=== PATIENT | male | born 1960 | race Caucasian/White ===

== ENCOUNTER → 2017-03-24 | Outpatient (CLI) | payer BC, OTHER ==
[~2017-03-24] VITALS: Ht 175.3 cm; Wt 182.3 kg
[~2017-03-24] MED LIST: ASPI81TA28 PO; CAND1TAB19 PO; HYDR25TA5 PO; PRVC/40 PO; TPRSR/100 PO
[2017-03-24 15:05] VITALS: BP 140/82; PULSE 83; Ht 175.3 cm; Wt 182.3 kg
== END | disposition home or self-care (01) ==
LOC: C.NEUR 14:40
PROVIDERS: ATTEND Internal Medicine Pulmonary Disease
DX: G47.33 Obstructive sleep apnea (adult) (pediatric) (principal); R05 Cough; E66.01 Morbid (severe) obesity due to excess calories

== ENCOUNTER → 2017-04-29 | Outpatient (CLI) | payer BC, OTHER ==
--- NOTE | 2017-04-30 06:22 | PAP/PSG TECHNICIAN REPORT ---
[facility] Appraiser Personal Property Polysomnogram Report Study name: None Report date: 04/30/2017 Study date: 04/29/2017 Referring Physician: DR. ROSAS Name: BRANDI MURPHY Interpreting Physician: Todd Rosas M.D. Date of : 1960 Appraiser Personal Property: SAMUEL Silva. Sex: Male Age: 56 StudyType: PSG PAP Weight: 401 lbs 22.5 inches Height: 56 years, Height 5' 9" Neck Circum: BMI: 59.21 Medications: ASPIRIN 81 MG, FUROSEMIDE 40 MG, HYDRALAZINE HCL 25 MG, LISINOPRIL 20 MG, METOPROLOL TARTRATE 50 MG, NAPROXEN 500 MG, PRAVASTATIN SODIUM 40 MG Patient History PATIENT HAS HISTORY OF SNORING, DAYTIME SLEEPINESS AND MARIUSZ. HE CURRENTLY HAS BEEN WEARING CPAP BUT STILL FEELS QUITE TIRED DURING THE DAY. HE HAS GAINED A SIGNIFICANT AMOUNT OF WEIGHT SINCE HIS LAST STUDY. HE IS HERE TODAY FOR A BIPAP TITRATION. ESS = 3 RM 7 Parameters Monitored NPSG: E1-M2, E2-M1, Fp1-M2, Fp2-M1, F3-M2, F4-M2, F4-M1, C3-M2, C4-M2, C4-M1, O1-M2, O2-M2, O2-M1, T3-M2, T4-M1, P3-M2, P4-M1, CHIN1, CHIN2, HR, EKG, Legs, PFLOW, SNOR, FLOW, CFLOW, Tidal Volume, THOR, ABDO, SpO2, PLTH, CPRESS, ETCO2 Wave, ETCO2, pH Sleep Architecture Sleep Stages Time at Lights Off 8:43:58 PM STAGES Time (min.) TST (%) Time at Lights On 5:46:28 AM Wake 52.5 -- Total Recording Time (TRT) 543.00 min. N1 23.0 5 Total Sleep Period (TSP) 539.5 min. N2 234.0 48 Total Sleep Time (TST) 490.0min. N3 105.0 21 Awake Time 53.0 min. REM 128.0 26 Wake after Sleep Onset 50.5 min. Sleep Efficiency (SE) 90 % Sleep Onset Latency (REZA) 2.0 min. Number of Stage 1 Shifts None Awakenings 13 Stage Changes 67 Number of REM periods 6 REM 128.0 26 REM Latency 137.5 min. NREM 362.0 74 Body Position Analysis Supine Right Left Side Prone Vertical Total Sleep Time (min.) 308.4 208.0 0.0 208.04 0.0 0.0 Total Sleep Time (%) 58% 42% 0% 42 0% N/A% Total Sleep Time REM (min.) 97.0 31.0 0.0 None 0.0 0.0 Total Sleep Time NREM (min.) 185.0 177.0 0.0 None 0.0 0.0 Intermittent Wake (min.) 26.4 26.1 0.0 None 0.0 0.0 Total Sleep Period (%) 57% None None None None None Arousals Myoclonus (PLM) * Events Count Index Events Count Index Spontaneous 21 3 Events Awake (PLMW) 38 43.4 Respiratory 5 0.9 Events Asleep w/ Arousal (PLMA) 7 0.9 PLM 7 1 Events Asleep w/o Arousal (PLMS) 309 37.8 Snoring 3 0 Total Asleep 316 38.7 Total 36 4 Total 354 39 Respiratory Analysis * CA OA MA CH H RERA Total Count 1 7 1 0 48 0 57 Index 0.1 0.9 0.1 0 5.9 0 7.0 Mean Duration 11.7 14.7 15.5 0.00 14.4 0.0 14.4 Longest Duration 11.7 18.4 15.5 0.00 15.5 0.0 19.4 Respiratory Event Summary Total Supine ~Supine Right Left Prone REM NREM Apneas Count 9 4 5 5 N/A N/A 6 3 Index 1.1 1 1 1.4 N/A N/A 3 0 Hypopneas (4% Desat) Count 48 33 15 15 N/A N/A 26 22 Index 5.9 7.0 4 4.3 N/A N/A 12.2 3.6 Apneas & All Hypopneas Count 57 37 20 20 N/A N/A 32 25 Index 7.0 8 6 6 N/A N/A 15.0 4.1 Respiratory Events (Kennel Attendant+All Hyp+RERA) Count 57 37 20 20 N/A N/A 32 25 Index 7.0 8 6 5.8 N/A N/A 15.0 4.1 Respiratory Related Arousal Count 5 37 1 1 N/A N/A 0 7 Index 0.9 1 0 0 N/A N/A 0 1 Snoring Analysis Supine Right Left Prone REM NREM Total Snore duration 25.0 min Snores count 865 444 N/A N/A 237 1,072 1,309 Snore mean duration 1.1 Sec Snores index 184 128 N/A N/A 111.1 177.7 160.3 TST with snoring (%) 5.1% Desaturation Event Summary: Minimum %SpO2 Event Count Mean/Min/Max Duration(sec.) Desaturation Index % Time In Bed > 90 58 28.4 / 10.5 / 63.6 9.4 69.1 86 - 90 7 21.9 / 13.0 / 45.8 2.6 30.2 81 - 85 0 N/A 0.0 0.5 76 - 80 0 N/A 0.0 0.1 71 - 75 0 N/A 0.0 0.0 66 - 70 0 N/A 0.0 0.0 61 - 65 0 N/A 0.0 0.0 56 - 60 0 N/A 0.0 0.0 51 - 55 0 N/A 0.0 0.0 < 50 0 N/A 0.0 0.0 Total REM NREM Awake <50% 0.0 min. 0.0 min. 0.0 min. 0.0 min. 51 - 60% 0.0 min. 0.0 min. 0.0 min. 0.0 min. 61 - 70% 0.0 min. 0.0 min. 0.0 min. 0.0 min. 71 - 80% 1.0 min. 0.6 min. 0.3 min. 0.1 min. 81 - 90% 164.6 min. 21.5 min. 138.8 min. 4.3 min. 91 - 100% 370.7 min. 105.9 min. 222.8 min. 42.0 min. Average 91 92 91 92 Minimum SpO2 72 72 79 79 Desaturation Event Index 6.6 14.5 3.8 6.9 # Desat. Events below 89% 40 18 19 3 Time(%) with Saturation below 89% 3.4 1.0 2.2 0.2 Time(min.) with Saturation below 89% 18.1 5.3 11.7 1.1 Time (mins) REM (mins) NREM (mins) % of TST SpO2 Below 90% 54 31 N23 12.8 SpO2 Below 88% 16 0 0 2 Heart Rate Analysis Min (bpm) Max (bpm) Average (bpm) Awake 52 127 63 NREM 50 127 62 REM 49 77 59 Overall 49 127 61 Supplemental O2 Values Minimum O2 level: None Value Start Time End Time Appraiser Personal Property Comments Mr. Murphy slept in the right and supine positions. No cardiac arrhythmia noted. Leg movements noted. No bruxism noted. PAP initiated at an IPAP of +8 CMH2O and an EPAP of +4 CMH2O up-titrated to an optimal level of: IPAP +16 CMH2O, EPAP + 9 CMH20 with biflex of 3, which nearly eliminated all respiratory events and snoring. A [employer] Simplus full face size medium mask was used during titration Mr. Murphy awoke to use the restroom 1 time during the night. Mr. Murphy stated I slept as well as I do when I am in my own bed. The final report will be interpreted and signed by a sleep physician. The completed physician report will then be placed in the patient medical record. Therapy Event: Therapy (cm H20) 84 9/4 10/4 11/5 12/6 13/7 Total Time at Pressure (min.) 73.5 37.4 31.5 7.8 15.8 109.0 TST at Pressure (min.) 71.5 36.4 30.5 7.8 15.8 108.0 # Periods 1 1 1 1 1 1 Sleep Onset (min.) 2.0 0.0 0.0 0.0 0.0 0.0 REM Onset (min.) N/A N/A 28.5 0.0 0.0 0.0 Sleep Efficiency % 97 97 96 100 100 99 Wakefulness (%) 2.7 2.7 3.2 0.0 0.0 0.9 Wakefulness (min.) 2.0 1.0 1.0 0.0 0.0 1.0 NREM 1 (%) 5.4 1.3 1.6 0.0 0.0 0.9 NREM 1 (min.) 4.0 0.5 0.5 0.0 0.0 1.0 NREM 2 (%) 44.2 33.3 69.9 0.0 0.0 63.8 NREM 2 (min.) 32.5 12.5 22.0 0.0 0.0 69.5 NREM 3 (%) 47.6 62.7 15.9 0.0 0.0 24.3 NREM 3 (min.) 35.0 23.5 5.0 0.0 0.0 26.5 REM (%) 0.0 0.0 9.5 100.0 100.0 10.1 REM (min.) 0.0 0.0 3.0 7.8 15.8 11.0 # Arousals 6 2 5 0 0 7 Arousal Index 5.0 3.3 9.8 0.0 0.0 3.9 # Snore 318 179 266 4 4 215 Snore Index 266.7 294.9 522.7 30.9 15.2 119.5 AHI 0.0 3.3 7.9 38.7 22.9 7.8 AHI Supine N/A 9.3 3.6 N/A N/A 9.0 AHI Non-Supine 0.0 0.0 13.1 38.7 22.9 5.8 NREM AHI 0.0 3.3 2.2 N/A N/A 4.9 REM AHI N/A N/A 60.2 38.7 22.9 32.8 RDI 0.0 3.3 7.9 38.7 22.9 7.8 # Obstructive 0 0 1 1 2 1 # Central Ap 0 0 0 0 0 1 # Mixed 0 0 0 1 0 0 # Hypopneas 0 2 3 3 4 12 RERAS 0 0 0 0 0 0 Total Respiratory Events 0 2 4 5 6 14 Time Below SpO2 89.00% (min.) 1.0 1.1 1.7 1.0 0.8 3.7 Mean NREM SpO2 (%) 90 90 91 N/A N/A 91 Mean REM SpO2 (%) N/A N/A 88 90 92 92 Mean Sleep SpO2 (%) 90 90 91 90 92 91 Min NREM SpO2 (%) 86 87 87 N/A N/A 80 Min REM SpO2 (%) N/A N/A 72 78 81 87 Position Supine (min.) 0.0 13.0 16.8 0.0 0.0 66.3 Position Non-supine (min.) 71.5 23.5 13.8 7.8 15.8 41.7 LM Index Sleep 119.9 135.1 66.8 0.0 0.0 23.9 LM Index NREM 119.9 135.1 74.1 N/A N/A 26.0 LM Index REM N/A N/A 0.0 0.0 0.0 5.5 Mean Heart Rate (bpm) 65 64 63 66 63 64 Min Heart Rate (bpm) 58 54 55 59 53 53 Therapy (cm H20) 14 15 15 16/9 1710 18/11 Total Time at Pressure (min.) 90.1 10.1 11.0 103.7 34.6 18.0 TST at Pressure (min.) 45.6 10.1 11.0 102.2 34.6 16.5 # Periods 1 1 1 1 1 1 Sleep Onset (min.) 0.0 0.0 0.0 0.0 0.0 0.0 REM Onset (min.) 0.0 4.4 0.0 0.0 23.1 0.0 Sleep Efficiency % 50 100 100 98 100 91 Wakefulness (%) 49.4 0.0 0.0 1.4 0.0 8.4 Wakefulness (min.) 44.5 0.0 0.0 1.5 0.0 1.5 NREM 1 (%) 11.7 0.0 0.0 3.9 2.9 8.4 NREM 1 (min.) 10.5 0.0 0.0 4.0 1.0 1.5 NREM 2 (%) 35.6 43.9 0.0 34.1 71.0 5.6 NREM 2 (min.) 32.1 4.4 0.0 35.4 24.6 1.0 NREM 3 (%) 0.0 0.0 0.0 14.5 0.0 0.0 NREM 3 (min.) 0.0 0.0 0.0 15.0 0.0 0.0 REM (%) 3.4 56.1 100.0 46.1 26.1 77.7 REM (min.) 3.0 5.6 11.0 47.8 9.0 14.0 # Arousals 6 0 0 7 1 2 Arousal Index 7.9 0.0 0.0 4.1 1.7 7.3 # Snore 73 4 17 206 22 1 Snore Index 96.0 23.9 92.5 120.9 38.1 3.6 AHI 10.5 17.9 21.8 4.7 5.2 0.0 AHI Supine 10.9 17.9 21.8 5.2 5.2 0.0 AHI Non-Supine 0.0 N/A N/A 3.7 N/A N/A NREM AHI 11.3 0.0 N/A 6.6 0.0 0.0 REM AHI 0.0 31.9 21.8 2.5 19.9 0.0 RDI 10.5 17.9 21.8 4.7 5.2 0.0 # Obstructive 0 1 0 1 0 0 # Central Ap 0 0 0 0 0 0 # Mixed 0 0 0 0 0 0 # Hypopneas 8 2 4 7 3 0 RERAS 0 0 0 0 0 0 Total Respiratory Events 8 3 4 8 3 0 Time Below SpO2 89.00% (min.) 1.0 0.7 0.3 4.7 1.1 0.0 Mean NREM SpO2 (%) 92 91 N/A 91 91 93 Mean REM SpO2 (%) 92 91 92 92 91 92 Mean Sleep SpO2 (%) 92 91 92 91 91 92 Min NREM SpO2 (%) 86 89 N/A 79 87 90 Min REM SpO2 (%) 86 86 87 88 86 89 Position Supine (min.) 44.1 10.1 11.0 69.7 34.6 16.5 Position Non-supine (min.) 1.5 0.0 0.0 32.6 0.0 0.0 LM Index Sleep 3.9 11.9 5.4 2.9 1.7 7.3 LM Index NREM 2.8 13.6 N/A 3.3 0.0 0.0 LM Index REM 19.9 10.6 5.4 2.5 6.6 8.6 Mean Heart Rate (bpm) 60 59 58 57 57 56 Min Heart Rate (bpm) 54 51 50 49 51 50
--- NOTE | 2017-05-03 10:47 | POLYSOMNOGRAPH REPORT ---
CLINICAL DATA: A 56-year-old male with BMI of 59.21 referred by myself, Jimena Paige and Dr. Azevedo for a BiPAP titration study. He has sleep apnea and has been using CPAP at 12 cm of water pressure, C-Flex setting 2, but has still been feeling very fatigued. He has gained a significant amount of weight since his last titration study. He is referred for a BiPAP titration study as recommended by Dr Ramos. SLEEP ARCHITECTURE: Total sleep period was 539.5 minutes. Total sleep time was 490 minutes divided between 362 minutes of non-REM sleep and 128 minutes of REM sleep. Sleep onset latency was 2 minutes. REM latency was 137.5 minutes. Sleep efficiency was 90%. Wake after sleep onset was 50.5 minutes. Sleep consisted of stage N1 5%, stage N2 48%, stage N3 21%, and REM 26%. AROUSAL DATA: Thirty-six arousals were recorded for an index of 4 per hour. PLM DATA: Xfcjp-[id number] limb movements during sleep were noted for an index of 38.7 per hour with arousal index of 0.9 per hour. RESPIRATORY DATA: The AHI was 7. There was 1 central, 1 mixed, and 7 obstructive apneic episodes. The longest duration of apnea was 18.4 seconds. There were 48 hypopneic episodes. Longest hypopneic episode was 15.5 seconds. OXIMETRY DATA: Nocturnal hypoxemia was seen. Oxygen hpuong was 92% during REM. The mean saturation was 91%. Time below 88% was 16 minutes. EKG: Heart rates ranged from 50-127 beats per minute. No arrhythmias were noted. GUARD IMMIGRATION'S COMMENTS AND TREATMENT SUMMARY: The patient slept in the right and supine positions. The patient used a [employer] Simplus full face size medium mask. He was titrated up to a final BIPAP pressure setting of 18/11, Bi-Flex 3. At that level, he slept for 16.5 minutes with an AHI of 0. At a BiPAP level of 16/9, Bi-Flex setting 3, the patient slept for 102 minutes with an AHI of 4.7. IMPRESSION: Severe obstructive sleep apnea/hypopnea corrected with BiPAP 18/11, Bi-Flex setting 3. The patient also had an acceptable AHI at a setting of BiPAP 16/9, Bi-Flex setting 3. RECOMMENDATIONS: The patient will be seen back to initiate BiPAP therapy. At this point in time he does not need supplemental oxygen. MTDD
== END | disposition home or self-care (01) ==
LOC: C.NEUR 20:00
PROVIDERS: ATTEND Internal Medicine Pulmonary Disease
DX: R05 Cough (principal); E66.01 Morbid (severe) obesity due to excess calories; G47.33 Obstructive sleep apnea (adult) (pediatric)

== ENCOUNTER 2022-12-30 16:01 | Inpatient (IN) ==
--- NOTE | 2022-12-30 16:38 | ED Triage Note ---
Date of Service December 30, 2022 History of Present Illness This patient was briefly evaluated while in triage. An abbreviated physical exam was performed. This patient is a 62-year-old Male who presents to the ED for evaluation of "I think I'm retaining fluid." He reports pressure across his ribcage, shortness of breath, and lower extremity edema. Symptoms started about 1 week ago. He has a history of prostate cancer. He reports abdominal bloating. Physical Exam VITALS: Vitals are noted on the nurse's note and reviewed by myself. GENERAL: This is a 62-year-old male, in no acute distress, well-developed well- nourished. SKIN: The skin was without rashes, erythema, edema, or bruising. EYES: Pupils equal round and reactive to light and accommodation. NOSE: Patent, turbinates without inflammation or discharge. HEART: Tachycardic, irregular rhythm without murmurs gallops or rubs. LUNGS: Clear to auscultation bilaterally without wheezes, rales or rhonchi. ABDOMEN: Positive bowel sounds x 4. Nontender to palpation. NEURO: Patient was alert and oriented to person place and time. Initial orders for labs and / or imaging were placed and patient was placed in the waiting area until a bed is available. Please see further documentation for the full ED course. MDM / Impression Impression Impression: Atrial flutter with rapid ventricular response
--- NOTE | 2022-12-30 17:05 | XRay Report ---
XR chest 1V portable HISTORY: Dyspnea COMPARISON: Chest and right rib series 01/28/2022. FINDINGS: No pneumothorax. There are trace bilateral pleural effusions. The cardiac silhouette remain s mildly enlarged. Progressive interstitial/vascular thickening consistent with developing congestive change. No new focal lung consolidations to suggest a pneumonia. IMPRESSION: Cardiomegaly with mild congestive change and trace bilateral pleural effusions. This has progressed i n the interval. ACT 112: Negative or not required by law. Electronically signed by: Elliot Aguilar M.D. 12/30/2022 5:03 PM
[2022-12-30] MEDS ORDERED: dilTIAZem HCl 5 MG/ML 5 ML VIAL IV ONE (17:17)
[2022-12-30] MEDS ORDERED: LORazepam 2 MG/1 ML VIAL IV STA (17:23)
[2022-12-30] MEDS ORDERED: LORazepam 2 MG/1 ML VIAL ONE (17:24)
[2022-12-30 17:25] LABS: Basophils # (auto) 0.03 K/uL (0.00-0.20); Basophils % (auto) 0.4 %; Eosinophils # (auto) 0.13 K/uL (0.00-0.50); Eosinophils % (auto) 1.8 %; Hematocrit (blood only) 39.8 % (42.0-52.0); Hemoglobin 13.5 g/dl (14.0-18.0); Immature Granulocytes # (auto) 0.01 K/uL (0.01-0.20); Immature Granulocytes % (auto) 0.1 %; Lymphocytes # (auto) 1.05 K/uL (1.20-3.40); Lymphocytes % (auto) 14.7 %; Mean Corpuscular Hemoglobin 29.2 pg (25.0-34.0); Mean Corpuscular Hgb Conc 33.9 g/dL (32.0-36.0); Mean Corpuscular Volume 86.1 fL (80.0-100.0); Mean Platelet Volume 10.7 fL (9.4-12.4); Monocytes # (auto) 0.51 K/uL (0.11-0.59); Monocytes % (auto) 7.1 %; Neutrophils # (auto) 5.41 K/uL (1.40-6.50); Neutrophils % (auto) 75.9 %; Platelet Count 238 K/uL (130-400); RDW Coefficient of Variation 12.8 % (11.5-14.5); RDW Standard Deviation 39.7 fL (36.4-46.3); Red Blood Count 4.62 M/uL (4.70-6.10); White Blood Count 7.14 K/ul (4.8-10.8)
[2022-12-30] MEDS ORDERED: dilTIAZem HCl 5 MG/ML 5 ML VIAL IV STA (17:27)
[2022-12-30] MEDS ORDERED: STAT IV Infusion **Titration per Protocol STA (17:29)
[2022-12-30 17:41] LABS: Bilirubin,Total 0.5 mg/dl (0.2-1.0); Calcium 8.8 mg/dl (8.6-10.3); Magnesium 1.9 mg/dl (1.7-2.4); Potassium 4.3 mmol/L (3.5-5.1)
[2022-12-30 17:47] LABS: Albumin Globulin Ratio 1.7 (0.9-2); BUN Creatinine Ratio 19.5 (10-20); Est GFR (African American) 76.2 ml/min; Est GFR (Non-African American) 65.7 ml/min; Globulin 2.3 gm/dl (2.5-4.0); Total Protein 6.3 gm/dl (6.0-8.3)
[2022-12-30] MEDS ORDERED: IOVERSOL 350 MG 125mL Prefilled Syringe IV ONE (17:47)
[2022-12-30 17:49] LABS: Appearance Urine Clear (Clear); Bilirubin Urine Negative (Negative); Blood Urine Negative (Negative); Color Urine Yellow; Glucose Urine UA Negative (Negative); Ketones Urine Negative (Negative); Leukocyte Esterase Urine Negative (Negative); Nitrite Urine Negative (Negative); Protein Urine Negative (Negative); Specific Gravity Urine 1.023 (1.000-1.030); Urobilinogen Urine Negative (Negative)
[2022-12-30] MEDS: dilTIAZem HCL 125 MG in DEXTROSE 5% 100 ML IV SCH (17:56)
[2022-12-30 18:08] LABS: Troponin I High Sensitivity 16.4 pg/ml (0-20)
[2022-12-30 18:09] LABS: Amphetamines+Metham, Urine Neg (Neg); Barbiturates, Urine Neg (Neg); Benzodiazepine, Urine Neg (Neg); Cocaine, Urine Neg (Neg); MDMA (Ecstacy), Urine Neg (Neg); Methadone, Urine Neg (Neg); Opiate, Urine Neg (Neg); Phencyclidine, Urine Neg (Neg)
[2022-12-30] MEDS ORDERED: METOPROLOL TARTRATE 1 MG/ML VIAL IV STA ×4 (18:10→19:10)
[2022-12-30 18:19] LABS: INR 1.1 (0.9-1.1); Partial Thromboplastin Time 26.8 Seconds (21.0-31.0); Prothrombin Time 11.8 Seconds (9.0-12.0)
--- NOTE | 2022-12-30 18:26 | CT Scan Report ---
CT angio chest PE protocol CT DOSE: 928.41 mGy.cm HISTORY: 62 years-old Male with ro PE. Acute shortness of breath TECHNIQUE: Multiple CTA images of the chest were obtained after the intravenous administration of 118 ml Optiray. Coronal and sagittal MIPS were obtained from the axial data set and were submitted for review. All measurements were obtained according to NASCET criteria. A dose lowering technique was u tilized adhering to the principles of ALARA. COMPARISON: Chest radiograph of same day FINDINGS: CTA: Mild cardiomegaly. Extensive coronary artery calcifications. Unremarkable thoracic aorta with mild at herosclerosis. Limited exam secondary to respiratory motion artifact. No central pulmonary emboli daniel ntified. CT CHEST: Left-sided thyroid goiter. Borderline enlarged right cardiophrenic lymph node on image 71 measures 1. 1 cm. Small pleural effusions. No pneumothorax. Bronchial wall and intralobular septal thickening not ed with moderate mixed groundglass densities and mild dependent bibasilar atelectasis. No suspicious pulmonary nodules or masses. Central airways are patent. Small hiatal hernia. Postoperative changes of the stomach. Hepatosplenomegaly with hepatic steatosis. Unremarkable soft tissues. No acute fracture. IMPRESSION: 1. Cardiomegaly with mild pulmonary edema. 2. Small pleural effusions with mild bibasilar atelectasis. 3. No central pulmonary emboli identified. ACT 112: Negative or not required by law. The above report was generated using voice recognition software. It may contain grammatical, syntax o r spelling errors. Electronically signed by: Bruce Bassett M.D. 12/30/2022 6:23 PM
[2022-12-30] MEDS ORDERED: MAGNESIUM SULFATE / D5W 1 GM/100 ML BAG IV ONE (18:44)
[2022-12-30 18:53] LABS: D Dimer 1470 ug/L FEU (0-500)
--- NOTE | 2022-12-30 19:00 | History & Physical Report ---
Date of Service December 30, 2022 Assessment & Plan (1) Atrial flutter with rapid ventricular response: Plan: New onset Start on diltiazem IV drip in the ER with minimal response Metoprolol 5mg IV added in ER also with minimal response Will give addition 5mg x2 IV metoprolol and metoprolol tartrate 25mg PO If still uncontrolled rate after this suggest starting digoxin overnight although suspect he is eventually looking at a cardioversion and will keep NPO after midnight for cardiology to review patient tomorrow. [id number] 3 (although CHF only acute in setting of a. flutter) - start heparin for anticoagulation Aim Mg > 2, K > 4 TTE TSH added to prior labs (2) Congestive heart failure with unknown left ventricular ejection fraction: Plan: New onset Lasix 40mg IV now, defer ongoing dosing to oncoming physicians depending on response Should improve with better rate control in addition I&Os Daily weight Low Na diet (3) Hypertension: Plan: Hold lisinopril to allow increased BP for rate control and diuresis (4) Coronary artery disease: Plan: Prior stent 11 years ago with no change in symptoms. Continue aspirin and ezetimibe (5) Hypercholesteremia: Plan: Continue ezetimibe Plan VTE Prophylaxis - IV heparin Diet - low Na diet, NPO after midnight Disposition - admit to PCU Admission and Anticipated Discharge Date Admission Date: December 30, 2022 History of Present Illness Chief Complaint: Shortness of breath Primary Care Provider: Tarah Daley MD Alonzo Murphy 62 year old male who presents with shortness of breath. He reports 1 week of syptoms, feeling bloated with shortness of breath mainly on exertion. Difficulty walking 50 yeards without feeling short of breath. No chest pain, orthopnea, PND claudication, new presyncope or palpitations. Associated leg swelling for the last week Weight gain 20-30lb over last 3 months. No urinary symptoms, abdominal pain, nausea or vomiting. He notes prior gastric sleeve - 4-5 years ago causing significant weight loss following this. He reports dizziness intermittently following this which he treats with eating sweets as he thinks his glucose levels go low but never measured. He has urinary frequency and nocturia following prostatectomy for prostate cancer. Following up with [facility] oncology for mass on his left kidney - no prior biopsy of this, switched from the [facility] as he was disappointed in their care who had talked about nephrectomy but he had declined. History of mild coronary artery disease although he did get a stent 11 years ago but reports only 70 % block and no change in symptoms following this. Cardiac catheterization was performed following abnormal NM scan. He follows with Dr Ramos locally with no problems since then. No history of arrhythmias known to patient. Prior history of MARIUSZ - no longer uses BiPAP following gastric sleeve with repeat sleep study in 2019 showing mild MARIUSZ. Allergies Allergy/AdvReac Type Severity Reaction Status Date / Time Bactrim Allergy Intermediate GI SYMPTOMS Verified 09/20/17 15:18 sulfamethoxazole Allergy Intermediate GI SYMPTOMS Verified 07/05/19 07:45 trimethoprim Allergy Intermediate GI SYMPTOMS Verified 07/05/19 07:45 Home Medications Medication Instructions Recorded Confirmed Type aspirin 81 mg tablet,delayed 81 mg PO DAILY 12/30/22 12/30/22 History release ezetimibe 10 mg tablet 10 mg PO DAILY 12/30/22 12/30/22 History lisinopril 40 mg tablet 40 mg PO DAILY 12/30/22 12/30/22 History sertraline 25 mg tablet 25 mg PO DAILY 12/30/22 12/30/22 History tadalafil 5 mg tablet 5 mg PO DAILY 12/30/22 12/30/22 History terazosin 1 mg capsule 1 mg PO HS 12/30/22 12/30/22 History Past Med/Surg History Medical History Acquired deviated nasal septum Hyperlipidemia Hypertension Moderate obstructive sleep apnea Nocturnal hypoxemia Obesity, morbid, BMI 40.0-49.9 Surgical History H/O heart artery stent (~2012) H/O knee surgery (~2000) meniscus and ACL repair History of carpal tunnel surgery (~2014) History of colonoscopy (~2014) History of gastric bypass History of sinus surgery S/P tonsillectomy Family History Other Coronary heart disease Social History Smoking Status: Never smoker Hx Alcohol Use: No Hx Substance Use: No Preferred Language: Jordanian Communication Ability: Effective Used [employer] Required: No Beliefs That Will Affect Care: None marital status: Current Living Situation: Spouse current occupational status: employed Other Information That Helps Us Care for You: No Feels Safe at Home: Yes Safety Concerns: Feels Safe At This Time Assistive Devices: Denture - Upper, Denture - Lower and Glasses Review of Systems Review of Systems: All systems reviewed & are unremarkable except as noted in HPI & below Physical Exam Constitutional: well developed and + morbidly obese; no acute distress Eyes: + anicteric sclerae; normal pupil size Neck: + short neck and + thick neck Respiratory: normal respiratory effort; no respiratory distress Auscultation: + diminished lung sounds (bibasal); no crackles, no rales, no rhonchi and no wheezes Cardiovascular: Rate/Rhythm: regular rhythm and + tachycardic Heart Sounds: no murmur Vessels: no JVD Extremities: + pedal edema (1+ b/l pitting equal) Gastrointestinal (Abdomen): normal bowel sounds, soft, nontender, no hepatosplenomegaly Inspection/Auscultation: + abdomen distended Musculoskeletal: no cyanosis or clubbing, extremities motor strength 5/5 Skin: no rashes, warm and dry Neurologic: moves all extremities and awake; not confused Psychiatric: A+Ox3, euthymic affect Results & Data Results & Data Vital Signs (Past 12 Hours) Vital Signs Temp Pulse Resp BP Pulse Ox O2 Del Method O2 Flow Rate 12/30/22 18:42 144 H 126/83 12/30/22 18:20 146 H 27 H 92 Room Air 12/30/22 18:16 147 H 38 H 93 12/30/22 18:16 126/83 12/30/22 18:10 147 H 24 90 12/30/22 18:01 150 H 26 H 93 12/30/22 18:01 136/79 12/30/22 18:00 147 H 27 H 94 12/30/22 17:56 132/90 12/30/22 17:56 150 H 25 H 95 12/30/22 17:51 143 H 23 94 12/30/22 17:40 137 H 26 H 93 12/30/22 17:30 148 H 29 H 93 12/30/22 17:30 137/82 12/30/22 17:24 148 H 28 H 93 12/30/22 18:01 94 Room Air 12/30/22 18:01 94 Room Air 0 12/30/22 18:14 150 H 136/79 12/30/22 17:31 149 H 12/30/22 16:32 36.9 C 82 18 133/91 93 Laboratory Results Abnormal lab results 12/30/22 12/30/22 12/30/22 Range/Units 17:09 17:09 17:09 RBC 4.62 L (4.70-6.10) M/uL Hgb 13.5 L (14.0-18.0) g/dl Hct 39.8 L (42.0-52.0) % Lymph # (Auto) 1.05 L (1.20-3.40) K/uL D-Dimer 1470 H* (0-500) ug/L FEU Chloride 109 H (98-107) mmol/L Glucose 111 H (70-99(Fasting)) mg/dl Globulin 2.3 L (2.5-4.0) gm/dl Diagnostic Findings XR chest 1V portable HISTORY: Dyspnea COMPARISON: Chest and right rib series 01/28/2022. FINDINGS: No pneumothorax. There are trace bilateral pleural effusions. The cardiac silhouette remains mildly enlarged. Progressive interstitial/vascular thickening consistent with developing congestive change. No new focal lung consolidations to suggest a pneumonia. IMPRESSION: Cardiomegaly with mild congestive change and trace bilateral pleural effusions. This has progressed in the interval. CT angio chest PE protocol CT DOSE: 928.41 mGy.cm HISTORY: 62 years-old Male with ro PE. Acute shortness of breath TECHNIQUE: Multiple CTA images of the chest were obtained after the intravenous administration of 118 ml Optiray. Coronal and sagittal MIPS were obtained from the axial data set and were submitted for review. All measurements were obtained according to NASCET criteria. A dose lowering technique was utilized adhering to the principles of ALARA. COMPARISON: Chest radiograph of same day FINDINGS: CTA: Mild cardiomegaly. Extensive coronary artery calcifications. Unremarkable thoracic aorta with mild atherosclerosis. Limited exam secondary to respiratory motion artifact. No central pulmonary emboli identified. CT CHEST: Left-sided thyroid goiter. Borderline enlarged right cardiophrenic lymph node on image 71 measures 1.1 cm. Small pleural effusions. No pneumothorax. Bronchial wall and intralobular septal thickening noted with moderate mixed groundglass densities and mild dependent bibasilar atelectasis. No suspicious pulmonary nodules or masses. Central airways are patent. Small hiatal hernia. Postoperative changes of the stomach. Hepatosplenomegaly with hepatic steatosis. Unremarkable soft tissues. No acute fracture. IMPRESSION: 1. Cardiomegaly with mild pulmonary edema. 2. Small pleural effusions with mild bibasilar atelectasis. 3. No central pulmonary emboli identified. Medications Administered ER Medications Given: Lorazepam 1mg IV Diltiazem 20mg IV Metoprolol 5mg IV Diltiazem 15mg/hr Mg sulfate 1g IV ECG Rate (beats per minute): 149 Rhythm: atrial flutter Findings: no acute ischemic change Comparison ECG Date: from (March 12, 2014) Change: the following changes noted (Atrial flutter replaced sinus rhythm, widespread ST depression, TWI lateral leads) Code Status & VTE Plan Code Status Full VTE Prophylaxis Plan VTE Prophylaxis will be ordered: Yes PG Care Time/CCT Total # of Minutes Spent Total Time Spent with Patient: Total time spent is greater than 50% in coordination of care (as documented) at patient's floor/unit and/or counseling patient: Coding Level of Care Code 96515 INT INP/OBS CARE 3/75MIN Diagnoses Atrial flutter with rapid ventricular response I48.92 Congestive heart failure with unknown left ventricular ejection fraction I50.9 Hypertension I10 Coronary artery disease I25.10 Hypercholesteremia E78.00
[2022-12-30] MEDS ORDERED: METOPROLOL TARTRATE 25 MG TAB PO STA (19:39)
[2022-12-30] MEDS ORDERED: FUROSEMIDE 40 MG/4 ML VIAL IV STA (19:39)
[2022-12-30 20:00] LABS: iSTAT Creatinine 1.2 mg/dl (0.6-1.3); iSTAT Hemoglobin 13.9 g/dl (14.0-18.0); iSTAT Ionized Calcium 1.16 mmol/l (1.12-1.32); iSTAT Potassium 4.3 mmol/L (3.3-5.0)
[2022-12-30] MEDS ORDERED: Heparin IV Adult Wt-Based Standard *NO* Bolus Protocol IV ONE (20:50)
[2022-12-30] MEDS ORDERED: ACETAMINOPHEN 325 MG TAB PO PRN (21:29)
[2022-12-30 21:32] LABS: Thyroid Stimulating Hormone 4.518 uIu/ml (0.300-4.500)
[2022-12-30 22:10] LABS: T4 Free Thyroxine 0.95 ng/dl (0.61-1.60)
[2022-12-30] MEDS: HEPARIN SODIUM/DEXTROSE 25,000 UNITS/500 ML BAG IV SCH (22:18)
[2022-12-31] MEDS: TERAZOSIN HCL 1 MG CAP PO SCH ×3 (00:19→20:15)
--- NOTE | 2022-12-31 00:35 | Emergency Department Note ---
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 PAIN ED Provider: Neal Benavidez Discharge Problem: Atrial flutter with rapid ventricular response Patient Disposition: Admitted As Inpatient Discharge Instructions Interventions: ED Discharge Assessment Last Done: 12/30/22 20:45
[2022-12-31] MEDS: dilTIAZem HCL 125 MG in DEXTROSE 5% 100 ML IV SCH ×3 (02:25→20:54)
[2022-12-31 05:56] LABS: Basophils # (auto) 0.06 K/uL (0.00-0.20); Basophils % (auto) 0.9 %; Eosinophils # (auto) 0.13 K/uL (0.00-0.50); Hematocrit (blood only) 40.6 % (42.0-52.0); Hemoglobin 13.7 g/dl (14.0-18.0); Immature Granulocytes # (auto) 0.03 K/uL (0.01-0.20); Immature Granulocytes % (auto) 0.5 %; Lymphocytes # (auto) 1.03 K/uL (1.20-3.40); Lymphocytes % (auto) 15.6 %; Mean Corpuscular Hgb Conc 33.7 g/dL (32.0-36.0); Mean Platelet Volume 11.2 fL (9.4-12.4); Monocytes # (auto) 0.43 K/uL (0.11-0.59); Monocytes % (auto) 6.5 %; Neutrophils # (auto) 4.91 K/uL (1.40-6.50); Neutrophils % (auto) 74.5 %; Platelet Count 213 K/uL (130-400); RDW Coefficient of Variation 12.9 % (11.5-14.5); RDW Standard Deviation 40.2 fL (36.4-46.3); Red Blood Count 4.72 M/uL (4.70-6.10); White Blood Count 6.59 K/ul (4.8-10.8)
[2022-12-31 06:12] LABS: BUN Creatinine Ratio 17.6 (10-20); Calcium 8.7 mg/dl (8.6-10.3); Creatinine Clr Calc Pharmacy 96.7 ml/min; Est GFR (African American) 75.4 ml/min; Est GFR (Non-African American) 65.1 ml/min; Magnesium 2.1 mg/dl (1.7-2.4); Potassium 4.1 mmol/L (3.5-5.1)
[2022-12-31 06:43] LABS: Partial Thromboplastin Ratio 1.4
[2022-12-31 06:45] LABS: Partial Thromboplastin Time 40.3 Seconds (21.0-31.0)
--- NOTE | 2022-12-31 08:41 | Electrocardiogram Report ---
Test Reason : Blood Pressure : / mmHG Vent. Rate : 149 BPM Atrial Rate : 300 BPM P-R Int : 000 ms QRS Dur : 086 ms QT Int : 264 ms P-R-T Axes : 264 -26 245 degrees QTc Int : 415 ms Atrial flutter with variable A-V block with premature ventricular or aberrantly conducted complexes Nonspecific ST and T wave abnormality Abnormal ECG When compared with ECG of 12-MAR-2014 10:59, Atrial flutter has replaced Sinus rhythm Vent. rate has increased BY [address] now depressed in Inferior leads ST now depressed in Anterolateral leads T wave inversion now evident in Lateral leads Confirmed by Marcus Mosquera ([id number]) on 12/31/2022 8:40:34 AM Referred By: Tarah Daley Confirmed By:Marcus Mosquera
[2022-12-31] MEDS ORDERED: METOPROLOL TARTRATE 25 MG TAB PO SCH (09:00)
[2022-12-31] MEDS: ASPIRIN 81 MG ECTAB PO SCH (09:12)
[2022-12-31] MEDS: SERTRALINE HCL 50 MG TABLET PO SCH (09:12)
[2022-12-31] MEDS: EZETIMIBE 10 MG TAB PO SCH (09:12)
[2022-12-31] MEDS ORDERED: METOPROLOL TARTRATE 25 MG TAB PO STA (09:59)
[2022-12-31] MEDS ORDERED: Nursing to Pharmacy Communication SCH (10:30)
[2022-12-31] MEDS: HEPARIN SODIUM/DEXTROSE 25,000 UNITS/500 ML BAG IV SCH (10:40)
--- NOTE | 2022-12-31 10:54 | XCELERA ---
[id number]
--- NOTE | 2022-12-31 11:18 | Cardiology Consultation ---
Date of Consultation December 31, 2022 Assessment & Plan (1) Atrial flutter with rapid ventricular response: -suspect his dysrhythmia began with new symptoms 1 week ago. -would increase metoprolol tartrate 50 mg q.i.d.. -wean diltiazem drip if possible. -consider intravenous digoxin if necessary. -would start Eliquis [address] of intravenous heparin. -if we can control his ventricular rate, he can be discharged for outpatient management. -if we cannot control his ventricular rate, consider BRICE/cardioversion on Monday morning. (2) Hypervolemia: -would consider an additional dose of an intravenous diuretic. (3) Coronary artery disease: -s/p intracoronary stent back in 2011. -quiescent on medical management since that time. (4) Hypertension: -adequate control currently. History of Present Illness Attending Physician: Larisa Bloom MD History of Present Illness Mr. Murphy is a 60-year-old male admitted yesterday with atrial flutter and rapid ventricular response. This consultation was ordered to assist in his cardiac management. Of note, the patient typically follows with Dr. Ramos the outpatient setting. The patient was in his usual state of health until approximately 1 week prior to presentation. The patient began to note progressive exertional dyspnea, abdominal fullness, and lower extremity edema. He had been on a fishing trip last Monday and felt his normal self. Symptoms began soon thereafter. He presented to the emergency room yesterday for an evaluation. He was found to be in atrial flutter with a rapid ventricular response. He was started on intravenous diltiazem and oral metoprolol. Hospitalization was recommended. The patient has never known of an atrial dysrhythmia previously. He has never experienced palpitations. He does carry history of coronary artery disease diagnosed back in 2011 at [facility]. He had an intracoronary stent placed, however, details are unknown. He has done well from a cardiac perspective and never experiences exertional angina pectoris. He further denies syncope, presyncope, PND, orthopnea, and claudication. Currently, patient is resting comfortably in bed and without complaints. Past medical and surgical history 1. Coronary artery disease-see above 2. Intra coronary artery stent-2011 3. Hypertension 4. Hypercholesterolemia 5. Obesity 6. Obstructive sleep apnea 7. Left renal mass 8. Prostate carcinoma 9. Prostatectomy 10. Gastric sleeve 11. Carpal tunnel release 12. 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 No tobacco alcohol Family history Father at age 58 from unknown causes. Was a heavy smoker and drinker Mother from a carcinoma. Review of systems A 10 review systems was undertaken and negative except that described above. Allergies Allergy/AdvReac Type Severity Reaction Status Date / Time Bactrim Allergy Intermediate GI SYMPTOMS Verified 09/20/17 15:18 sulfamethoxazole Allergy Intermediate GI SYMPTOMS Verified 07/05/19 07:45 trimethoprim Allergy Intermediate GI SYMPTOMS Verified 07/05/19 07:45 Home Medications Medication Instructions Recorded Confirmed Type aspirin 81 mg tablet,delayed 81 mg PO DAILY 12/30/22 12/30/22 History release ezetimibe 10 mg tablet 10 mg PO DAILY 12/30/22 12/30/22 History lisinopril 40 mg tablet 40 mg PO DAILY 12/30/22 12/30/22 History sertraline 25 mg tablet 25 mg PO DAILY 12/30/22 12/30/22 History tadalafil 5 mg tablet 5 mg PO DAILY 12/30/22 12/30/22 History terazosin 1 mg capsule 1 mg PO HS 12/30/22 12/30/22 History Patient History Medical History Acquired deviated nasal septum Hyperlipidemia Hypertension Moderate obstructive sleep apnea Nocturnal hypoxemia Obesity, morbid, BMI 40.0-49.9 Surgical History H/O heart artery stent (~2012) H/O knee surgery (~2000) meniscus and ACL repair History of carpal tunnel surgery (~2014) History of colonoscopy (~2014) History of gastric bypass History of sinus surgery S/P tonsillectomy Family History Other Coronary heart disease Social History Smoking Status: Never smoker Hx Alcohol Use: No Hx Substance Use: No Preferred Language: Zambian Communication Ability: Effective Public Relations Assistant Required: No Beliefs That Will Affect Care: None marital status: Current Living Situation: Spouse current occupational status: employed Other Information That Helps Us Care for You: No Feels Safe at Home: Yes Safety Concerns: Feels Safe At This Time Assistive Devices: Denture - Upper, Denture - Lower and Glasses Physical Exam Physical Exam: In general is obese male lying supine in bed without complaints. HEENT exam is negative. Neck is supple with full carotid upstrokes. No carotid bruits. Jugular is pressure is flat at 90. There is no thyromegaly. Cardiovascular exam reveals an irregular rhythm with distant heart sounds. No obvious murmurs. Lungs are clear without rales, rhonchi or wheezes. Abdomen is obese without bruits. Extremities reveal intact radial artery pulses bilaterally. One to 2+ pretibial edema is noted. Results & Data Vital Signs (Past 12 Hours) Vital Signs Temp Pulse Pulse Resp BP Pulse Ox O2 Del Method 12/31/22 09:39 120 H 12/31/22 09:18 Room Air 12/31/22 08:31 36.8 C 119 H 28 H 127/84 95 Room Air 12/31/22 06:00 95 H 132/100 12/31/22 04:03 112 H 126/78 12/31/22 03:26 36.4 C 112 H 18 133/87 96 Room Air 12/31/22 03:18 113 H 127/86 12/31/22 02:06 106 H 131/77 12/31/22 01:07 113 H 98/84 L 12/31/22 00:06 115 H 119/64 Laboratory Results CBC notes hemoglobin 13.5, hematocrit 39.8, white count 7.1, a platelet of [id number]. Electrolytes note a sodium of 140, potassium 4.1, chloride 108, bicarb 26, BUN 21, creatinine 1.19, and glucose of 98. Magnesium level is normal 2.1. TSH is mildly elevated 4.518, but T4 is normal at 0.95. High sensitivity troponin is normal at 16.4. Diagnostic Findings Echocardiogram notes normal systolic function with ejection fraction 50-55%. There is borderline LVH. No valvular pathology. EKG notes atrial flutter with a variable ventricular response and a rapid ventricular rate. Chest x-ray notes cardiomegaly and mild interstitial edema. CT scan of the chest notes cardiomegaly, interstitial edema, but no evidence of a pulmonary embolism. PG Care Time/CCT Total # of Minutes Spent Total Time Spent with Patient: Total time spent is greater than 50% in coordination of care (as documented) at patient's floor/unit and/or counseling patient: Coding Level of Care Code 60950 IN/OBS CONSULT LVL 4,60M Diagnoses Atrial flutter with rapid ventricular response I48.92 Hypervolemia E87.70 Coronary artery disease I25.10 Hypertension I10
--- NOTE | 2022-12-31 11:22 | Electrocardiogram Report ---
Test Reason : Blood Pressure : / mmHG Vent. Rate : 148 BPM Atrial Rate : 148 BPM P-R Int : 168 ms QRS Dur : 086 ms QT Int : 274 ms P-R-T Axes : 000 -32 083 degrees QTc Int : 430 ms Atrial flutter with 2 to 1 block Left axis deviation Nonspecific ST and T wave abnormality Abnormal ECG When compared with ECG of 30-DEC-2022 17:04, No significant change Confirmed by Marcus Mosquera ([id number]) on 12/31/2022 11:21:54 AM Referred By: Tarah Daley Confirmed By:Marcus Mosquera
--- NOTE | 2022-12-31 11:23 | Electrocardiogram Report ---
Test Reason : Blood Pressure : / mmHG Vent. Rate : 127 BPM Atrial Rate : 000 BPM P-R Int : 000 ms QRS Dur : 096 ms QT Int : 374 ms P-R-T Axes : 000 152 051 degrees QTc Int : 543 ms Atrial flutter with rapid ventricular response with premature ventricular or aberrantly conducted com plexes Right axis deviation Nonspecific ST and T wave abnormality Abnormal ECG When compared with ECG of 30-DEC-2022 17:28, (unconfirmed) No significant change Confirmed by Marcus Mosquera ([id number]) on 12/31/2022 11:23:12 AM Referred By: Tarah Daley Confirmed By:Marcus Mosquera
--- NOTE | 2022-12-31 11:56 | Hospitalist Progress Note ---
Date of Service December 31, 2022 Assessment & Plan (1) Atrial flutter with rapid ventricular response: Plan: New onset The patient is on IV Cardizem drip and heparin drip Heparin drip discontinued and the patient was started on Eliquis by cardiology The plan per cardiology is to try medical management with rate control and if fails, consider cardioversion on Monday. Metoprolol dose increased to 50 mg p.o. every 6 Digoxin may be considered Goal is to titrate him off of the diltiazem drip after rate control achieved N.p.o. canceled as no cardioversion planned for today [id number] (although CHF only acute in setting of a. flutter). Heparin switched to Eliquis Aim Mg > 2, K > 4 TTE reviewed. Borderline concentric LVH noted. LV systolic function normal. TSH unremarkable (2) Congestive heart failure with unknown left ventricular ejection fraction: Plan: New onset Lasix 40 mg IV x1 given on admission Will give another dose as the patient still has leg swelling. I&Os Daily weight Low Na diet (3) Hypertension: Plan: Hold lisinopril to allow increased BP for rate control and diuresis (4) Coronary artery disease: Plan: Prior stent 11 years ago with no change in symptoms. Continue aspirin and ezetimibe (5) Hypercholesteremia: Plan: Continue ezetimibe Plan VTE Prophylaxis -Eliquis Diet - low Na diet Admission and Anticipated Discharge Date Admission Date: December 30, 2022 Subjective The patient denies any chest pain, shortness of breath, palpitations. He remains in rapid atrial fibrillation on Cardizem drip and heparin drip. Review of Systems Review of Systems: All systems reviewed & are unremarkable except as noted in Subjective Physical Exam Physical Exam: General: Awake, conversant Heart: S1, S2/irregular rapid rhythm, no murmur rubs or gallops Lungs: Clear to auscultation bilaterally. Normal effort Abdomen: Soft/nontender/nondistended. No hepatosplenomegaly Extremities: No clubbing/cyanosis. 1+ pitting bilateral edema Behavior: Appropriate, cooperative Results & Data Results & Data Vital Signs (Past 12 Hours) Vital Signs Temp Pulse Pulse Resp BP Pulse Ox O2 Del Method 12/31/22 11:29 37.1 C 121 H 25 H 111/76 97 Room Air 09/09/23 09:39 120 H 12/31/22 09:18 Room Air 12/31/22 08:31 36.8 C 119 H 28 H 127/84 95 Room Air 12/31/22 06:00 95 H 132/100 12/31/22 04:03 112 H 126/78 12/31/22 03:26 36.4 C 112 H 18 133/87 96 Room Air 12/31/22 03:18 113 H 127/86 12/31/22 02:06 106 H 131/77 12/31/22 01:07 113 H 98/84 L 12/31/22 00:06 115 H 119/64 Laboratory Results Abnormal lab results 12/30/22 12/30/22 12/30/22 Range/Units 17:09 17:09 17:09 RBC 4.62 L (4.70-6.10) M/uL Hgb 13.5 L (14.0-18.0) g/dl POC Hgb (14.0-18.0) g/dl Hct 39.8 L (42.0-52.0) % POC Hct (42-52) % Lymph # (Auto) 1.05 L (1.20-3.40) K/uL APTT (21.0-31.0) Seconds D-Dimer 1470 H* (0-500) ug/L FEU Chloride 109 H (98-107) mmol/L POC BUN (7-18) mg/dl Glucose 111 H (70-99(Fasting)) mg/dl POC Glucose (other) (70-99) mg/dl Globulin 2.3 L (2.5-4.0) gm/dl TSH (0.300-4.500) uIu/ml 12/30/22 12/30/22 12/31/22 Range/Units 17:09 17:36 05:35 RBC (4.70-6.10) M/uL Hgb 13.7 L (14.0-18.0) g/dl POC Hgb 13.9 L (14.0-18.0) g/dl Hct 40.6 L (42.0-52.0) % POC Hct 41 L (42-52) % Lymph # (Auto) 1.03 L (1.20-3.40) K/uL APTT (21.0-31.0) Seconds D-Dimer (0-500) ug/L FEU Chloride (98-107) mmol/L POC BUN 22 H (7-18) mg/dl Glucose (70-99(Fasting)) mg/dl POC Glucose (other) 105 H (70-99) mg/dl Globulin (2.5-4.0) gm/dl TSH 4.518 H (0.300-4.500) uIu/ml 12/31/22 12/31/22 Range/Units 05:35 05:35 RBC (4.70-6.10) M/uL Hgb (14.0-18.0) g/dl POC Hgb (14.0-18.0) g/dl Hct (42.0-52.0) % POC Hct (42-52) % Lymph # (Auto) (1.20-3.40) K/uL APTT 40.3 H* (21.0-31.0) Seconds D-Dimer (0-500) ug/L FEU Chloride 108 H (98-107) mmol/L POC BUN (7-18) mg/dl Glucose (70-99(Fasting)) mg/dl POC Glucose (other) (70-99) mg/dl Globulin (2.5-4.0) gm/dl TSH (0.300-4.500) uIu/ml Diagnostic Findings Chest X-Ray 12/30/22 16:38 XR chest 1V portable HISTORY: Dyspnea COMPARISON: Chest and right rib series 01/28/2022. FINDINGS: No pneumothorax. There are trace bilateral pleural effusions. The cardiac silhouette remains mildly enlarged. Progressive interstitial/vascular thickening consistent with developing congestive change. No new focal lung consolidations to suggest a pneumonia. IMPRESSION: Cardiomegaly with mild congestive change and trace bilateral pleural effusions. This has progressed in the interval. ACT 112: Negative or not required by law. Electronically signed by: Elliot Aguilar M.D. 12/30/2022 5:03 PM Chest CTA 12/30/22 17:28 CT angio chest PE protocol CT DOSE: 928.41 mGy.cm HISTORY: 62 years-old Male with ro PE. Acute shortness of breath TECHNIQUE: Multiple CTA images of the chest were obtained after the intravenous administration of 118 ml Optiray. Coronal and sagittal MIPS were obtained from the axial data set and were submitted for review. All measurements were obtained according to NASCET criteria. A dose lowering technique was utilized adhering to the principles of ALARA. COMPARISON: Chest radiograph of same day FINDINGS: CTA: Mild cardiomegaly. Extensive coronary artery calcifications. Unremarkable thoracic aorta with mild atherosclerosis. Limited exam secondary to respiratory motion artifact. No central pulmonary emboli identified. CT CHEST: Left-sided thyroid goiter. Borderline enlarged right cardiophrenic lymph node on image 71 measures 1.1 cm. Small pleural effusions. No pneumothorax. Bronchial wall and intralobular septal thickening noted with moderate mixed groundglass densities and mild dependent bibasilar atelectasis. No suspicious pulmonary nodules or masses. Central airways are patent. Small hiatal hernia. Postoperative changes of the stomach. Hepatosplenomegaly with hepatic steatosis. Unremarkable soft tissues. No acute fracture. IMPRESSION: 1. Cardiomegaly with mild pulmonary edema. 2. Small pleural effusions with mild bibasilar atelectasis. 3. No central pulmonary emboli identified. ACT 112: Negative or not required by law. The above report was generated using voice recognition software. It may contain grammatical, syntax or spelling errors. Electronically signed by: Bruce Bassett M.D. 12/30/2022 6:23 PM PG Care Time/CCT Total # of Minutes Spent Total Time Spent with Patient: Total time spent is greater than 50% in coordination of care (as documented) at patient's floor/unit and/or counseling patient: Coding Level of Care Code 05437 SUB INP/OBS CARE 2/35MIN Diagnoses Atrial flutter with rapid ventricular response I48.92 Congestive heart failure with unknown left ventricular ejection fraction I50.9 Hypertension I10 Coronary artery disease I25.10 Hypercholesteremia E78.00
[2022-12-31] MEDS ORDERED: FUROSEMIDE 40 MG/4 ML VIAL IV ONE (12:02)
[2022-12-31] MEDS: APIXABAN 5 MG TABLET PO SCH ×2 (12:21→20:04)
[2022-12-31] MEDS: METOPROLOL TARTRATE 50 MG TAB PO SCH ×3 (13:37→20:04)
[2022-12-31] MEDS ORDERED: DIGOXIN 250 MCG in SYRINGE 9 ML IV STA (16:06)
[2022-12-31] MEDS ORDERED: DIGOXIN 250 MCG in SYRINGE 9 ML IV ONE (20:00)
[2023-01-01] MEDS: dilTIAZem HCL 125 MG in DEXTROSE 5% 100 ML IV SCH ×2 (07:00→10:31)
[2023-01-01] MEDS: METOPROLOL TARTRATE 50 MG TAB PO SCH ×4 (08:05→20:35)
[2023-01-01] MEDS: ASPIRIN 81 MG ECTAB PO SCH (08:05)
[2023-01-01] MEDS: EZETIMIBE 10 MG TAB PO SCH (08:05)
[2023-01-01] MEDS: SERTRALINE HCL 50 MG TABLET PO SCH (08:05)
[2023-01-01] MEDS: APIXABAN 5 MG TABLET PO SCH ×2 (08:05→20:34)
[2023-01-01] MEDS: dilTIAZem HCl 60 MG TAB PO SCH ×3 (10:39→20:35)
--- NOTE | 2023-01-01 11:24 | Cardiology Progress Note ---
Date of Service January 01, 2023 Assessment & Plan (1) Atrial flutter with rapid ventricular response: Plan: -suspect his dysrhythmia began 1 week ago. -continue metoprolol tartrate 50 mg q.i.d.. -wean diltiazem drip after starting oral diltiazem 60 mg t.i.d. -continue Eliquis 5 mg b.i.d. -if we can control his ventricular rate, he can be discharged for outpatient management. -if we cannot control his ventricular rate, consider BRICE/cardioversion on Monday morning. (2) Hypervolemia: Plan: -resolved. (3) Coronary artery disease: Plan: -s/p intracoronary stent back in 2011. -quiescent on medical management since that time. (4) Hypertension: Plan: -adequate control currently. Admission and Anticipated Discharge Date Admission Date: December 30, 2022 Subjective The patient is resting comfortably in bed without complaints of chest pain, dyspnea, or palpitations. Physical Exam Physical Exam: In general is obese male lying supine in bed without complaints. HEENT exam is negative. Neck is supple with full carotid upstrokes. No carotid bruits. No JVD. There is no thyromegaly. Cardiovascular exam reveals an irregular rhythm with distant heart sounds. No obvious murmurs. Lungs are clear without rales, rhonchi or wheezes. Abdomen is obese without bruits. Extremities reveal intact radial artery pulses bilaterally. One to 2+ pretibial edema is noted. 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 PG Care Time/CCT Total # of Minutes Spent Total Time Spent with Patient: Total time spent is greater than 50% in coordination of care (as documented) at patient's floor/unit and/or counseling patient: Coding Level of Care Code 00883 SUB INP/OBS CARE 3/50MIN Diagnoses Atrial flutter with rapid ventricular response I48.92 Hypervolemia E87.70 Coronary artery disease I25.10 Hypertension I10
--- NOTE | 2023-01-01 11:41 | Hospitalist Progress Note ---
Date of Service January 01, 2023 Assessment & Plan (1) Atrial flutter with rapid ventricular response: Plan: New onset The patient is Still on IV Cardizem drip. Plan is to take him off of the drip today. started on Eliquis For high [id number] score Continue metoprolol 50 mg p.o. 4 times daily He has just been started on Cardizem 60 mg p.o. 3 times daily I hope for him to be off of Cardizem drip today and be rate controlled. We will watch him for another 24 hours on this current regimen of metoprolol and Cardizem p.o. We will keep him n.p.o. postmidnight in case he requires cardioversion. Hopeful for discharge tomorrow if rate controlled on this current regimen. Check BMP and mag tomorrow to keep mag greater than 20 and potassium greater than 4 TTE reviewed Borderline concentric LVH noted. LV systolic function normal. TSH unremarkable (2) Congestive heart failure with unknown left ventricular ejection fraction: Plan: New onset he got 2 doses of Lasix 40 mg IV during this hospital stay Does not seem to be fluid overloaded today We will hold off on further Lasix today. I&Os Daily weight Low Na diet (3) Hypertension: Plan: Hold lisinopril to allow increased BP for rate control and diuresis (4) Coronary artery disease: Plan: Prior stent 11 years ago with no change in symptoms. Continue aspirin and ezetimibe (5) Hypercholesteremia: Plan: Continue ezetimibe Plan VTE Prophylaxis -Eliquis Diet - low Na diet Admission and Anticipated Discharge Date Admission Date: December 30, 2022 Subjective noted that the patient's heart rate overnight went down to as low as 34. This morning was up to 106. The plan is to titrate him off of the Cardizem drip Patient denies any symptoms. Palpitations. No chest pain. No shortness of breath. Review of Systems Review of Systems: All systems reviewed & are unremarkable except as noted in Subjective Physical Exam Physical Exam: General: Awake, conversant Heart: S1, S2/irregular rapid rhythm, no murmur rubs or gallops Lungs: Clear to auscultation bilaterally. Normal effort Abdomen: Soft/nontender/nondistended. No hepatosplenomegaly Extremities: No clubbing/cyanosis. Trace pitting bilateral edema Behavior: Appropriate, cooperative Results & Data Results & Data Vital Signs (Past 12 Hours) Vital Signs Temp Pulse Resp BP Pulse Ox O2 Del Method 01/01/23 08:07 36.5 C 72 18 168/92 H 94 Room Air 01/01/23 07:30 Room Air 01/01/23 05:43 106 H 01/01/23 03:00 36.7 C 104 H 20 125/76 93 Room Air 01/01/23 03:24 136 H 01/01/23 02:30 34 L 125/76 PG Care Time/CCT Total # of Minutes Spent Total Time Spent with Patient: Total time spent is greater than 50% in coordination of care (as documented) at patient's floor/unit and/or counseling patient: Coding Level of Care Code 81606 SUB INP/OBS CARE 2/35MIN Diagnoses Atrial flutter with rapid ventricular response I48.92 Congestive heart failure with unknown left ventricular ejection fraction I50.9 Hypertension I10 Coronary artery disease I25.10 Hypercholesteremia E78.00
[2023-01-01] MEDS: TERAZOSIN HCL 1 MG CAP PO SCH (20:36)
[2023-01-02] MEDS: dilTIAZem HCL 125 MG in DEXTROSE 5% 100 ML IV SCH (02:09)
[2023-01-02] MEDS ORDERED: METOPROLOL TARTRATE 1 MG/ML VIAL IV STA (03:59)
[2023-01-02] MEDS ORDERED: dilTIAZem HCl 5 MG/ML 5 ML VIAL IV STA (04:33)
[2023-01-02 06:51] LABS: BUN Creatinine Ratio 20.2 (10-20); Calcium 8.3 mg/dl (8.6-10.3); Creatinine Clr Calc Pharmacy 103.5 ml/min; Est GFR (African American) 83.9 ml/min; Est GFR (Non-African American) 72.4 ml/min; Magnesium 1.9 mg/dl (1.7-2.4); Potassium 3.9 mmol/L (3.5-5.1)
[2023-01-02] MEDS: EZETIMIBE 10 MG TAB PO SCH (07:14)
[2023-01-02] MEDS: ASPIRIN 81 MG ECTAB PO SCH (07:14)
[2023-01-02] MEDS: dilTIAZem HCl 60 MG TAB PO SCH ×2 (07:14→13:40)
[2023-01-02] MEDS: METOPROLOL TARTRATE 50 MG TAB PO SCH ×3 (07:15→16:18)
[2023-01-02] MEDS: SERTRALINE HCL 50 MG TABLET PO SCH (07:15)
[2023-01-02] MEDS: APIXABAN 5 MG TABLET PO SCH (07:15)
[2023-01-02] MEDS ORDERED: POTASSIUM CHLORIDE / WTR 10 MEQ/100 ML PLCT IV ONE (08:02)
[2023-01-02] MEDS ORDERED: MAGNESIUM SULFATE / D5W 1 GM/100 ML BAG IV ONE (08:02)
--- NOTE | 2023-01-02 11:06 | Cardiology Progress Note ---
Date of Service January 02, 2023 Assessment & Plan (1) Atrial flutter with rapid ventricular response: Plan: -ventricular response difficult to control. -continue metoprolol tartrate and diltiazem. -continue Eliquis 5 mg b.i.d. -BRICE/cardioversion today. (2) Coronary artery disease: Plan: -s/p intracoronary stent back in 2011. -quiescent on medical management since that time. (3) Hypertension: Plan: -adequate control currently. Admission and Anticipated Discharge Date Admission Date: December 30, 2022 Subjective The patient is resting comfortably in bed without complaints of chest pain, dyspnea, or palpitations. Physical Exam Physical Exam: In general is obese male lying supine in bed without complaints. HEENT exam is negative. Neck is supple with full carotid upstrokes. No carotid bruits. No JVD. There is no thyromegaly. Cardiovascular exam reveals an irregular rhythm with distant heart sounds. No obvious murmurs. Lungs are clear without rales, rhonchi or wheezes. Abdomen is obese without bruits. Extremities reveal intact radial artery pulses bilaterally. 1+ pretibial edema. 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 PG Care Time/CCT Total # of Minutes Spent Total Time Spent with Patient: Total time spent is greater than 50% in coordination of care (as documented) at patient's floor/unit and/or counseling patient: Coding Level of Care Code 06160 SUB INP/OBS CARE 3/50MIN Diagnoses Atrial flutter with rapid ventricular response I48.92 Coronary artery disease I25.10 Hypertension I10
[2023-01-02] MEDS ORDERED: BENZOCAINE/TETRACAIN/BUTAM 50 APPLN/5 GM CAN EXT ONE (12:20)
[2023-01-02] MEDS ORDERED: PROPOFOL IV EMULSION 10 MG/ML 20 ML VIAL IV ONE (12:24)
[2023-01-02] MEDS ORDERED: MIDAZOLAM HCL 1 MG/ML 2ML VIAL ONE (12:25)
--- NOTE | 2023-01-02 12:37 | Anesthesiology Consultation ---
Date of Service January 02, 2023 Assessment & Plan ASA ASA3 Proposed Anesthesia Anesthesia Type: MAC Risk / Benefits Reviewed With: PT / POA / Parent / Guardian, Accepts Plan and Informed Consent Obtained History Surgery Operation Date: 01/02/23 13:00 Proposed Procedures p Transesophageal Echo w/Anesthesia - Marcus Mosquera MD s Cardioversion - Marcus Mosquera MD Height/Weight Height: 5 ft 9 in Weight: 154.4 kg Allergies Allergy/AdvReac Type Severity Reaction Status Date / Time Bactrim Allergy Intermediate GI SYMPTOMS Verified 09/20/17 15:18 sulfamethoxazole Allergy Intermediate GI SYMPTOMS Verified 07/05/19 07:45 trimethoprim Allergy Intermediate GI SYMPTOMS Verified 07/05/19 07:45 Medications Home Medications Medication Instructions Recorded Confirmed Last Taken aspirin 81 mg tablet,delayed 81 mg PO DAILY 12/30/22 12/30/22 Unknown release ezetimibe 10 mg tablet 10 mg PO DAILY 12/30/22 12/30/22 Unknown lisinopril 40 mg tablet 40 mg PO DAILY 12/30/22 12/30/22 Unknown sertraline 25 mg tablet 25 mg PO DAILY 12/30/22 12/30/22 Unknown tadalafil 5 mg tablet 5 mg PO DAILY 12/30/22 12/30/22 Unknown terazosin 1 mg capsule 1 mg PO HS 12/30/22 12/30/22 Unknown Active Medications Generic Name Dose Route Start Last Admin Trade Name Renan PRN Reason Stop Dose Admin Apixaban 5 mg 12/31/22 11:00 01/02/23 07:15 Apixaban 5 Mg Tablet PO 01/30/23 10:59 5 mg BID JAQUI Administration Aspirin 81 mg 12/31/22 09:00 01/02/23 07:14 Aspirin 81 Mg Ectab PO 01/30/23 08:59 81 mg DAILY JAQUI Administration Diltiazem HCl 60 mg 01/01/23 10:15 01/02/23 07:14 Diltiazem Hcl 60 Mg Tab PO 01/31/23 10:14 60 mg TID JAQUI Administration Ezetimibe 10 mg 12/31/22 09:00 01/02/23 07:14 Ezetimibe 10 Mg Tab PO 01/30/23 08:59 10 mg DAILY JAQUI Administration Metoprolol Tartrate 50 mg 12/31/22 13:00 01/02/23 12:14 Metoprolol Tartrate 50 Mg Tab PO 01/30/23 12:59 50 mg QID JAQUI Administration Sertraline HCl 25 mg 12/31/22 09:00 01/02/23 07:15 Sertraline Hcl 50 Mg Tablet PO 01/30/23 08:59 25 mg DAILY JAQUI Administration Terazosin HCl 1 mg 12/30/22 22:10 01/01/23 20:36 Terazosin Hcl 1 Mg Cap PO 01/29/23 22:09 1 mg HS JAQUI Administration NPO Date Last Intake of Fluids: 01/02/23 Time Last Intake of Fluids: 00:00 Date Last Intake of Solids: 01/02/23 Time Last Intake of Solids: 00:00 Past Medical History Medical History Acquired deviated nasal septum Hyperlipidemia Hypertension Moderate obstructive sleep apnea Nocturnal hypoxemia Obesity, morbid, BMI 40.0-49.9 Exercise / Class Metabolic Activity II 4-5 Yardwork/Stairs/Walk up hill Past Family History Family History Other Coronary heart disease Past Surgical History Surgical History H/O heart artery stent (~2012) H/O knee surgery (~2000) meniscus and ACL repair History of carpal tunnel surgery (~2014) History of colonoscopy (~2014) History of gastric bypass History of sinus surgery S/P tonsillectomy Past Anesthesia History No Hx of Anesthesia Complications and No Family Hx of Anesthesia Complications History of PONV No Hx of PONV and No Hx of Motion Sickness Social History Smoking Status: Never smoker Hx Alcohol Use: No Hx Substance Use: No Review of Systems denies fever/cough/ colds/ chest pain/ SOB/ MARIUSZ denies MARIUSZ Physical Exam Vital Signs Last Vital Signs Temp 36.6 C 01/02/23 12:09 Pulse 99 H 01/02/23 12:09 Resp 18 01/02/23 12:09 BP 135/78 01/02/23 12:09 Pulse Ox 95 01/02/23 12:09 O2 Del Method Room Air 01/02/23 12:09 O2 Flow Rate 0 12/30/22 18:01 ENMT Mouth: no TMJ abnormality and no dentition abnormality Thyromental Distance: > or= 3.5 Finger Breadths Mallampati Class: III Neck + facial hair; neck extension not limited Respiratory normal respiratory effort; no respiratory distress Auscultation: lungs clear to auscultation bilaterally Cardiovascular Rate/Rhythm: regular rate and regular rhythm Neurologic moves all extremities Psychiatric Orientation: alert and oriented x 3 Testing Laboratory Results 12/31/22 05:35 01/02/23 05:54 PT 11.8 Seconds (9.0-12.0) 12/30/22 17:09 INR 1.1 (0.9-1.1) 12/30/22 17:09 APTT 40.3 Seconds (21.0-31.0) H* 12/31/22 05:35 Urine Color Yellow 12/30/22 17:34 Urine Appearance Clear (Clear) 12/30/22 17:34 Urine pH 5.0 (4.5-7.5) 12/30/22 17:34 Ur Specific [place] 1.023 (1.000-1.030) 12/30/22 17:34 Urine Protein Negative (Negative) 12/30/22 17:34 Urine Glucose (UA) Negative (Negative) 12/30/22 17:34 Urine Ketones Negative (Negative) 12/30/22 17:34 Urine Nitrite Negative (Negative) 12/30/22 17:34 Ur Leukocyte Esterase Negative (Negative) 12/30/22 17:34
--- NOTE | 2023-01-02 13:10 | Anesthesiology Progress Note ---
Date of Service January 02, 2023 Anesthesia Post Procedure Vital Signs Vital Signs: Temp Pulse Pulse Resp BP BP Pulse Ox 01/02/23 13:00 68 16 119/81 96 01/02/23 12:09 36.6 C 99 H 18 135/78 95 01/02/23 08:00 01/02/23 07:50 36.6 C 110 H 19 113/89 96 01/02/23 05:17 137 H 148/94 H 01/02/23 04:28 136 H 139/98 01/02/23 04:13 135 H 123/98 01/02/23 04:08 36.9 C 135 H 16 123/98 94 01/01/23 21:58 99 H 01/01/23 23:00 36.6 C 87 16 126/77 97 01/01/23 20:00 01/01/23 20:38 111 H 133/81 01/01/23 19:00 36.6 C 97 H 16 137/85 96 01/01/23 16:40 36.8 C 72 23 133/81 92 O2 Del Method 01/02/23 13:00 Room Air 01/02/23 12:09 Room Air 01/02/23 08:00 Room Air 01/02/23 07:50 Room Air 01/02/23 05:17 01/02/23 04:28 01/02/23 04:13 01/02/23 04:08 Room Air 01/01/23 21:58 01/01/23 23:00 Room Air 01/01/23 20:00 Room Air 01/01/23 20:38 01/01/23 19:00 Room Air 01/01/23 16:40 Room Air Pain Intensity Chest: Pain Intensity: 3 Transfer of Care Handoff Completed per policy Notes Mental Status: alert / awake / arousable and participated in evaluation Patient Amnestic to Procedure: Yes Nausea / Vomiting: adequately controlled Pain: adequately controlled Airway Patency, RR, SpO2: stable & adequate BP & HR: stable & adequate Hydration State: stable & adequate Anesthetic Complications: no major complications apparent and Pt Satisfied with anesthetic care
--- NOTE | 2023-01-02 13:20 | XCELERA ---
[id number] \\[id number]
--- NOTE | 2023-01-02 13:23 | Cardioversion ---
Date of Service January 02, 2023 PG Electrical Cardioversion Rp Electrical Cardioversion Report Procedure: BRICE directed electrical cardioversion Protocol: After informed consent and a time-out performed, the patient was sedated smoothly by Dr. Shelton. The patient was monitored continuously by telemetry, end-tidal CO2, pulse oximetry, and sphygmomanometry a transesophageal echocardiogram revealed no evidence of left atrial appendage thrombus. The BRICE probe was removed without difficulty the patient was then given 100 J of synchronized biphasic energy via hands-off paddles. The patient successfully converted to sinus rhythm. Following the procedure, the patient was hemodynamically stable and without complaints. There were no complications. Conclusions: 1. No left atrial appendage thrombus by BRICE. 2. Successful cardioversion to sinus rhythm 3. No complications Coding Level of Care Code 80247 CARDIOVERSION, ELECTIVE Additional Codes Electrical Cardioversion Report ([id number])
--- NOTE | 2023-01-02 17:58 | Discharge Summary ---
Discharge Summary Date of Service January 02, 2023 Notes For Next Care Provider Medication Changes From Visit Toprol XL 100mg po hs Diltiazem CD 180mg po qAM Eliquis 5mg po bid Admission HPI Per Admitting Provider Alonzo Murphy 62 year old male who presents with shortness of breath. He reports 1 week of syptoms, feeling bloated with shortness of breath mainly on exertion. Difficulty walking 50 yeards without feeling short of breath. No chest pain, orthopnea, PND claudication, new presyncope or palpitations. Associated leg swelling for the last week Weight gain 20-30lb over last 3 months. No urinary symptoms, abdominal pain, nausea or vomiting. He notes prior gastric sleeve - 4-5 years ago causing significant weight loss following this. He reports dizziness intermittently following this which he treats with eating sweets as he thinks his glucose levels go low but never measured. He has urinary frequency and nocturia following prostatectomy for prostate cancer. Following up with [facility] oncology for mass on his left kidney - no prior biopsy of this, switched from the [facility] as he was disappointed in their care who had talked about nephrectomy but he had declined. History of mild coronary artery disease although he did get a stent 11 years ago but reports only 70 % block and no change in symptoms following this. Cardiac catheterization was performed following abnormal NM scan. He follows with Dr Ramos locally with no problems since then. No history of arrhythmias known to patient. Prior history of MARIUSZ - no longer uses BiPAP following gastric sleeve with repeat sleep study in 2019 showing mild MARIUSZ. Principal Dx & Hospital Course #1 = Principal Diagnosis (1) Atrial flutter with rapid ventricular response: New onset initially placed on IV Cardizem drip and then transitioned to po metoprolol 50mg po qid and diltiazem 60mg po tid without much success of rate control started on Eliquis for high [id number] score TTE reviewed-with borderline concentric LVH noted. LV systolic function normal. TSH unremarkable Had BRICE without VICTOR M thrombus and had cardioversion successfully to inus rhtyhm on day of discharge dc to home on Toprol XL 100mg hs an Diltiazem CD 180mg po qAM along with Eliquis 5mg po bid f/u with primary powder shoveler as outpt (2) Congestive heart failure with unknown left ventricular ejection fraction: with acute on chronic HFpEF on admission 2/2 rapid atrial flutter and fib he got 2 doses of Lasix 40 mg IV during this hospital stay and volume statu much improved (3) Hypertension: Held lisinopril to allow increased BP for rate control and diuresis--> BPs remained somewhat elevated so it is fine to resume home lisinopril on discharge in addition to metoprolol and diltiazem (4) Coronary artery disease: Prior stent 11 years ago with no change in symptoms. Continue aspirin and ezetimibe, pravastatin, and now on metoprolol (5) Hypercholesteremia: Continue ezetimibe, pravastatin Plan VTE Prophylaxis -Eliquis Dispo-dc to home Discharge Exam Constitutional WD/WN, vitals as above Respiratory normal respiratory effort, lungs clear to auscultation Cardiovascular RRR, no murmur, no edema Gastrointestinal (Abdomen) normal bowel sounds, soft, nontender, no hepatosplenomegaly Psychiatric A+Ox3, euthymic affect Updated Medication List Medication Instructions Recorded Confirmed Type aspirin 81 mg tablet,delayed 81 mg PO DAILY 12/30/22 12/30/22 History release ezetimibe 10 mg tablet 10 mg PO DAILY 12/30/22 12/30/22 History lisinopril 40 mg tablet 40 mg PO DAILY 12/30/22 12/30/22 History sertraline 25 mg tablet 25 mg PO DAILY 12/30/22 12/30/22 History terazosin 1 mg capsule 1 mg PO HS 12/30/22 12/30/22 History apixaban 5 mg tablet (Eliquis) 5 mg PO BID #60 tabs 01/02/23 Rx diltiazem HCl 180 mg 180 mg PO QAM #30 caps 01/02/23 Rx capsule,extended release 24 hr metoprolol succinate 100 mg 100 mg PO HS #30 tabs 01/02/23 Rx tablet,extended release 24 hr (Toprol XL) pravastatin 20 mg tablet 20 mg PO HS 01/02/23 01/02/23 History Hospital Stay Data Consultations 12/30/22 18:36 ED Decision to Admit Stat 12/30/22 22:10 Consult Cardiology Routine Procedures Performed Operation Date: 01/02/23 13:00 Actual Procedures p Echo Transesophageal - Marcus Mosquera MD s Cardioversion - Marcus Mosquera MD Diagnostic Imagining Performed 12/30/22 17:28 CT angio chest PE protocol Stat ECHO Pending Results Patient Have Any Pending Studies at Discharge: No Discharge Instructions Given to Patient (Per Discharging Provider) Please continue to take the blood thinner called Eliquis, twice a day to prevent strokes and blood clots. You were also started on two new medications for your heart called metoprolol and diltiazem. If you have any bleeding issues or fall and hit your head, please come to the hospital right away to get checked out. You should not take any NSAIDS (i.e. ibuprofen, Advil, Motrin, Aleve, etc.) along with Eliquis as these are also blood thinners. If you sense your heart is beating rapidly, please call your Staff Antisubmarine Officer's office for further instruction. Total Time Total Time Spent Total Time Spent (In Minutes): 35 min Total Time Includes: Examination of the Patient, Discharge Planning, Medication Reconciliation and Communication With Other Providers (Dr. Mosquera) Coding Level of Care Code 28591 INP/OBS DISCH >30 MIN Diagnoses Atrial flutter with rapid ventricular response I48.92 Congestive heart failure with unknown left ventricular ejection fraction I50.9 Hypertension I10 Coronary artery disease I25.10 Hypercholesteremia E78.00
--- NOTE | 2023-01-03 15:23 | Electrocardiogram Report ---
Test Reason : Blood Pressure : / mmHG Vent. Rate : 065 BPM Atrial Rate : 065 BPM P-R Int : 180 ms QRS Dur : 094 ms QT Int : 424 ms P-R-T Axes : 067 -37 051 degrees QTc Int : 440 ms Normal sinus rhythm Left axis deviation Abnormal ECG When compared with ECG of 30-DEC-2022 18:30, Sinus rhythm has replaced Atrial flutter Vent. rate has decreased BY 62 BPM Questionable change in QRS axis ST now depressed in Inferior leads Nonspecific T wave abnormality no longer evident in Lateral leads Confirmed by Marcus Mosquera ([id number]) on 01/03/2023 3:22:59 PM Referred By: Tarah Daley Confirmed By:Marcus Mosquera
== END 2023-01-02 18:21 | disposition home or self-care (01) | DRG 308 ==
LOC: ED 16:01 → 2E 18:52 → SUATTDRO 18:52 → 2E 20:45

== ENCOUNTER 2024-10-08 12:47 | Observation (INO) ==
--- NOTE | 2024-10-08 13:14 | Emergency Department Note ---
Impression & Plan Coronary artery disease, Chest pain, NASH (dyspnea on exertion), Fatigue ED Provider Note NAME: BRANDI GOMEZ AGE: 63 SEX: M : 1960 ARRIVES VIA: Walk-In INFORMANT: Patient, ED PROVIDER(S): Renzo Grijalva MD CHIEF COMPLAINT: Chest pain MEDICAL DECISION MAKING: Patient presents due to concern for chest pain. IV was established and blood work was obtained along with an EKG. The patient does have depressions on EKG noted laterally and inferiorly. These appear to be somewhat similar compared to prior. Patient also did have DVT ultrasound completed of the right lower extremity. Known history of A-fib and is anticoagulated on Eliquis. Patient's blood work showed a normal white count hemoglobin and platelet count the patient's kidney function is unremarkable. Initial troponin negative. Urinalysis does not show NIzza blood or infection. Labs and TSH are normal. Repeat troponin obtained. The patient's DVT study was technically compromised but no obvious DVT. No acute findings on chest x-ray. After further discussion with the patient I did speak with the on-call enrollment management manager Dr. Epps after further discussion with Dr. Epps he states that if the patient would like to stay in hospital they would like to proceed with a stress test in the morning if not they would schedule something within the week. After further discussion with the patient he is amenable to staying in hospital have stress test completed tomorrow. I did speak the on-call hospital service Dr. Willis and the patient was admitted to the medicine service. Discussion w/ other healthcare providers: Dr. Epps cardiology Dr. Willis inpatient medicine Prior /Outside records reviewed: none Differential diagnosis: Cardiac ischemia, aortic dissection, pulmonary embolism, pneumothorax, pneumonia, pericarditis, myocarditis, GERD, cholecystitis, pancreatitis, musculoskeletal, as well as other pathologies were considered. Diagnostics, as interpreted by me: ECG: Sinus bradycardia, rate of 56, normal normals, normal axis, T wave inversions in lead III. Depressions noted inferiorly and laterally. ST depressions inferiorly appear more pronounced compared to prior from comparison January 02, 2023. Repeat EKG interpreted by myself Sinus bradycardia, rate of 51, normal intervals, normal axis ST depressions noted inferiorly and laterally no significant change from comparison earlier today. Cardiac monitoring: An order was placed for continuous cardiac monitoring. The monitor shows a rate of 56 with sinus rhythm. Patient was placed on pulse oximetry Medical decision rules: Heart score Imaging studies: I informally interpreted the patient's chest x-ray does not show obvious pneumonia or pneumothorax with formal report to follow. HPI: Patient presents due to concern for burning chest pain. The patient states that it is central and left-sided no exact radiation. The patient states this been ongoing several weeks although it is usually fairly brief. He does notice that leaning forward seems to improve but laying flat makes it worse. He does not notice that it is postprandial and does not think that this is reflux or GERD. The patient does have a prior history of CAD status post stent 13 years ago. He also has a known history of A-fib does take Eliquis. He does follow with Dr. Mosquera. Patient denies any cough or fever. 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 He also reports prior history of prostate and kidney cancer status post treatments. Patient does report increased NASH and fatigability which has been ongoing the last several months but is worsened and becoming more frequent. PAST MEDICAL HISTORY: See Below PAST SURGICAL HISTORY: See Below SOCIAL HISTORY: See Below HOME MEDICATIONS: See Below ALLERGIES: See Below VITALS: See Below PHYSICAL EXAMINATION: GENERAL: NAD, non-toxic. BMI 52. EYE EXAM: Normal conjunctiva. PERRL, no anisocoria and EOM's grossly intact w/o pain. OROPHARYNX: Moist mucus membranes, grossly normal dentition. NECK: Trachea midline, no stridor. LUNGS: Clear to auscultation. Normal chest wall mechanics. HEART: NSR, no MRG. ABDOMEN: Abdomen soft, non-tender, no masses, no rebound or guarding. BACK: No CVA TTP. SKIN: No rashes and no bruising. UPPER EXTREMITIES: Upper extremities are grossly normal. LOWER EXTREMITIES: Right greater than left lower extremity edema without calf pain, no significant erythema. NEURO EXAM: Awake and alert, follows commands, no obvious facial asymmetry, normal speech, moves all 4 extremities. 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 Left renal mass S/P prostatectomy Radical prostatectomy with bilateral lymph node dissection on 01/12/23 at [facility] by Dr Etienne Powell Prostate cancer (Chronic 11/17/21) Stented coronary artery Congestive heart failure with unknown left ventricular ejection fraction Coronary artery disease (Acute) Hypertension (Chronic) Obesity, morbid, BMI 40.0-49.9 (Chronic) Nocturnal hypoxemia Acquired deviated nasal septum (Acute) Hypercholesteremia (Chronic) Medical History Depression Anxiety Chronic anticoagulation Moderate obstructive sleep apnea Hyperlipidemia Surgical History History of gastric bypass History of sinus surgery H/O heart artery stent (~2012) History of colonoscopy (~2014) History of carpal tunnel surgery (~2014) Bilateral S/P tonsillectomy H/O knee surgery (~2000) meniscus and ACL repair Right knee Family History Mother , 76yo Throat cancer Diabetes Hypertension Father , 58yo Myocardial infarction Alcoholic Sister Overdose Sister No problems noted. Sister No problems noted. Daughter No problems noted. Son No problems noted. Son No problems noted. 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 [employer] How many Children do You have: 3 Other Information That Helps Us Care for You: No Feels Safe at Home: Yes Safety Concerns: Feels Safe At This Time Diet: regular caffeine: Yes (2 cups/day) during the past year weight has: remained stable Assistive Devices: Denture - Upper and Denture - Lower Allergies Allergies Allergy/AdvReac Type Severity Reaction Status Date / Time Bactrim Allergy Intermediate GI SYMPTOMS Verified 09/20/17 15:18 rosuvastatin Allergy Intermediate Hives Verified 10/08/24 17:50 sulfamethoxazole Allergy Intermediate GI SYMPTOMS Verified 10/08/24 17:50 trimethoprim Allergy Intermediate GI SYMPTOMS Verified 10/08/24 17:50 Home Meds Home Medications Medication Instructions Recorded Confirmed aspirin 81 mg tablet,delayed 81 mg PO DAILY 12/30/22 10/08/24 release ezetimibe 10 mg tablet 10 mg PO QAM 12/30/22 10/08/24 sertraline 25 mg tablet 25 mg PO QAM 12/30/22 10/08/24 terazosin 1 mg capsule 1 mg PO HS 12/30/22 10/08/24 lisinopril 40 mg tablet 20 mg PO QAM 10/08/24 10/08/24 pravastatin 20 mg tablet 20 mg PO HS 10/08/24 10/08/24 Previous Rx's Medication Instructions Recorded apixaban 5 mg tablet (Eliquis) 5 mg PO BID #60 tabs 01/02/23 diltiazem HCl 180 mg 180 mg PO QAM #90 caps 01/25/24 capsule,extended release 24 hr metoprolol succinate 100 mg 100 mg PO HS #90 tabs 01/25/24 tablet,extended release 24 hr (Toprol XL) Results & Data (ED) Vital Signs Vital Signs - 24 hr 10/08/24 12:51 10/08/24 12:59 10/08/24 13:02 Temperature 36.5 C Temperature Source Temporal Artery Scan Pulse Rate 60 57 L 57 L Pulse Rate [Apical] Pulse Rate from SpO2 Sensor Pulse Rhythm Regular Pulse Strength Normal Respiratory Rate 17 17 Respiratory Effort / Characteristics Non-Labored Spontaneous Respiratory Depth Normal Respiratory Pattern Regular Blood Pressure 174/92 H Blood Pressure [Right Arm] Blood Pressure Mean 119 Blood Pressure Mean [Right Arm] Blood Pressure Position Sitting Pulse Oximetry 95 95 Oxygen Delivery Method Room Air Room Air Sepsis Recent Fever Within 48 Hours No Sepsis New/Unexplained Change in Mental Status No Sepsis Action Taken by Nursing No Action Required 10/08/24 13:11 10/08/24 14:03 10/08/24 14:45 Temperature Temperature Source Pulse Rate 53 L 48 L Pulse Rate [Apical] Pulse Rate from SpO2 Sensor 53 L 49 L Pulse Rhythm Pulse Strength Respiratory Rate 19 18 Respiratory Effort / Characteristics Non-Labored Spontaneous Respiratory Depth Normal Respiratory Pattern Blood Pressure 167/89 H 164/76 H Blood Pressure [Right Arm] Blood Pressure Mean 116 105 Blood Pressure Mean [Right Arm] Blood Pressure Position Pulse Oximetry 95 94 Oxygen Delivery Method Room Air Sepsis Recent Fever Within 48 Hours Sepsis New/Unexplained Change in Mental Status Sepsis Action Taken by Nursing 10/08/24 15:00 10/08/24 17:00 10/08/24 17:23 Temperature Temperature Source Pulse Rate 49 L Pulse Rate [Apical] 50 L 52 L Pulse Rate from SpO2 Sensor Pulse Rhythm Pulse Strength Respiratory Rate 18 18 Respiratory Effort / Characteristics Non-Labored Spontaneous Non-Labored Spontaneous Respiratory Depth Normal Normal Respiratory Pattern Regular Regular Blood Pressure Blood Pressure [Right Arm] 154/92 H 182/95 H Blood Pressure Mean Blood Pressure Mean [Right Arm] 112 124 Blood Pressure Position Pulse Oximetry 94 97 Oxygen Delivery Method Room Air Room Air Sepsis Recent Fever Within 48 Hours Sepsis New/Unexplained Change in Mental Status Sepsis Action Taken by Skilled Nursing Medications Current Medication List: was personally reviewed by me Laboratory Data Attestation: I reviewed the patient's lab results. 10/08/24 13:10 10/08/24 13:10 Lab Results 10/08/24 10/08/24 Range/Units 13:10 15:16 WBC 6.55 (4.8-10.8) K/ul RBC 4.78 (4.70-6.10) M/uL Hgb 14.2 (14.0-18.0) g/dl Hct 40.4 L (42.0-52.0) % MCV 84.5 (80.0-100.0) fL MCH 29.7 (25.0-34.0) pg MCHC 35.1 (32.0-36.0) g/dL RDW Std Deviation 37.2 (36.4-46.3) fL RDW Coeff of Jerod 12.2 (11.5-14.5) % Plt Count 185 (130-400) K/uL MPV 10.2 (9.4-12.4) fL Immature Gran % (Auto) 0.2 % Neut % (Auto) 74.9 % Lymph % (Auto) 12.7 % [place] % (Auto) 8.5 % Eos % (Auto) 2.9 % Baso % (Auto) 0.8 % Neut # (Auto) 4.91 (1.40-6.50) K/uL Lymph # (Auto) 0.83 L (1.20-3.40) K/uL [place] # (Auto) 0.56 (0.11-0.59) K/uL Eos # (Auto) 0.19 (0.00-0.50) K/uL Baso # (Auto) 0.05 (0.00-0.20) K/uL Immature Gran # (Auto) 0.01 (0.01-0.20) K/uL PT 10.3 (9.0-12.0) Seconds INR 0.9 (0.9-1.1) Sodium 142 (136-145) mmol/L Potassium 4.2 (3.5-5.1) mmol/L Chloride 108 H (98-107) mmol/L Carbon Dioxide 26 (21-32) mmol/L Anion Gap 8 (3-11) BUN 21 (6-23) mg/dl Creatinine 1.18 (0.6-1.4) mg/dl Est Cr Clr Drug Dosing 96.4 ml/min eGFR 69.34 BUN/Creatinine Ratio 17.8 (10-20) Glucose 82 (70-99(Fasting)) mg/dl Calcium 8.8 (8.6-10.3) mg/dl Magnesium 1.9 (1.7-2.4) mg/dl Total Bilirubin 0.3 (0.2-1.0) mg/dl AST 16 (13-39) U/L ALT 24 (7-52) U/L Alkaline Phosphatase 91 (34-104) U/L Troponin I High Sens 7.1 6.9 (0-20) pg/ml Total Protein 6.8 (6.0-8.3) gm/dl Albumin 3.8 (3.4-5.0) gm/dl Globulin 3.0 (2.5-4.0) gm/dl Albumin/Globulin Ratio 1.3 (0.9-2) Lipase 62 (11-82) U/L TSH 3.525 (0.300-4.500) uIu/ml Urine Color Yellow Urine Appearance Clear (Clear) Urine pH 5.5 (4.5-7.5) Ur Specific [place] 1.020 (1.000-1.030) Urine Protein Negative (Negative) Urine Glucose (UA) Negative (Negative) Urine Ketones Negative (Negative) Urine Blood Trace H (Negative) Urine Nitrite Negative (Negative) Urine Bilirubin Negative (Negative) Urine Urobilinogen Negative (Negative) Ur Leukocyte Esterase Negative (Negative) Urine WBC (Auto) 0-5 (0-5) /hpf Urine RBC (Auto) 0-2 (0-2) /hpf U Hyaline Cast (Auto) 0-2 (0-2) /lpf U Epithel Cells (Auto) 0-2 (0-2) /hpf Urine Bacteria (Auto) None Seen (None Seen) Urine Comment Lyme Disease Screen Negative (Negative) Administered Medications Apixaban (Apixaban 5 Mg Tablet) 5 mg PO BID [facility] Stop: 11/07/24 20:59 Last Admin: 10/09/24 08:05 Dose: 5 mg Documented By: Admin: 10/08/24 20:55 Dose: 5 mg Documented By: NICKOLAS Aspirin (Aspirin 81 Mg Ectab) 81 mg PO DAILY JAQUI Stop: 11/08/24 08:59 Last Admin: 10/09/24 08:05 Dose: 81 mg Documented By: KIA Diltiazem HCl (Diltiazem Hcl 180 Mg Capcr) 180 mg PO QAM JAQUI Stop: 11/08/24 08:59 Last Admin: 10/09/24 08:06 Dose: Not Given Documented By: KIA Ezetimibe (Ezetimibe 10 Mg Tab) 10 mg PO DAILY JAQUI Stop: 11/08/24 08:59 Last Admin: 10/09/24 08:06 Dose: 10 mg Documented By: KIA Lisinopril (Lisinopril 40 Mg Tab) 40 mg PO DAILY JAQUI Stop: 11/08/24 08:59 Last Admin: 10/09/24 08:05 Dose: 40 mg Documented By: KIA Metoprolol Succinate (Metoprolol Succ 50mg Ext Rel Tab) 100 mg PO HS JAQUI Stop: 11/07/24 20:59 Last Admin: 10/08/24 20:55 Dose: 100 mg Documented By: NICKOLAS Pravastatin Sodium (Pravastatin Sod 40 Mg Tab) 40 mg PO DAILY JAQUI Stop: 11/08/24 08:59 Last Admin: 10/09/24 08:07 Dose: 40 mg Documented By: KIA Sertraline HCl (Sertraline Hcl 50 Mg Tablet) 25 mg PO DAILY JAQUI Stop: 11/08/24 08:59 Last Admin: 10/09/24 08:07 Dose: 25 mg Documented By: KIA Terazosin HCl (Terazosin Hcl 1 Mg Cap) 1 mg PO HS JAQUI Stop: 11/07/24 20:59 Last Admin: 10/08/24 20:55 Dose: 1 mg Documented By: NICKOLAS Imaging Data Radiologist's Impression: Chest X-Ray 10/08/24 13:03 XR chest 1V portable CLINICAL HISTORY: Chest pain, nonspecific COMPARISON STUDY: 01/11/2023 FINDINGS: Stable mild cardiomegaly without pulmonary vascular congestion. No effusion, consolidation, or pneumothorax. IMPRESSION: No acute findings. ACT 112: Negative or not required by law. Electronically signed by: Yuan Leonard M.D. 10/08/2024 1:40 PM Venous Doppler Study 10/08/24 13:46 RIGHT LOWER EXTREMITY VENOUS DOPPLER CLINICAL HISTORY: Right leg swelling. Evaluate for deep venous thrombus. COMPARISON STUDY: Right lower extremity venous Doppler ultrasound September 26, 2015. TECHNIQUE: Sonography of the deep venous system of the right lower extremity was performed. Compression and augmentation were evaluated. FINDINGS: Exam is compromised by suboptimal penetration. The right common femoral, superficial femoral and popliteal veins were compressible. Augmentation was normal. Flow was shown within the deep calf vessels. IMPRESSION: Technically compromised exam but no evidence of deep venous thrombus within the right lower extremity. ACT 112: Negative or not required by law. Electronically signed by: Zaid Johnston M.D. 10/08/2024 3:17 PM Discharge Plan Visit Data Chief Complaint: Cardiac Assessment Stated Complaint: HEART, FATIGUE, SOB, HEARTBURN ED Provider: Renzo Grijalva Discharge Problem: Coronary artery disease, Chest pain, NASH (dyspnea on exertion), Fatigue Patient Disposition: Admitted As Inpatient Condition: Good Discharge Instructions Interventions: ED Discharge Assessment Last Done: 10/08/24 19:59 Discharge Problem: Coronary artery disease Qualifiers: Coronary Disease-Associated Artery/Lesion type: unspecified vessel or lesion type [place] vs. transplanted heart: [place] heart Associated angina: unspecified whether angina present Qualified Code(s): I25.10 - Atherosclerotic heart disease of [place] coronary artery without angina pectoris Chest pain Qualifiers: Chest pain type: unspecified Qualified Code(s): R07.9 - Chest pain, unspecified Fatigue Qualifiers: Fatigue type: unspecified Qualified Code(s): R53.83 - Other fatigue
[2024-10-08 13:33] LABS: Basophils # (auto) 0.05 K/uL (0.00-0.20); Basophils % (auto) 0.8 %; Eosinophils # (auto) 0.19 K/uL (0.00-0.50); Eosinophils % (auto) 2.9 %; Hematocrit (blood only) 40.4 % (42.0-52.0); Hemoglobin 14.2 g/dl (14.0-18.0); Immature Granulocytes # (auto) 0.01 K/uL (0.01-0.20); Immature Granulocytes % (auto) 0.2 %; Lymphocytes # (auto) 0.83 K/uL (1.20-3.40); Lymphocytes % (auto) 12.7 %; Mean Corpuscular Hemoglobin 29.7 pg (25.0-34.0); Mean Corpuscular Hgb Conc 35.1 g/dL (32.0-36.0); Mean Corpuscular Volume 84.5 fL (80.0-100.0); Mean Platelet Volume 10.2 fL (9.4-12.4); Monocytes # (auto) 0.56 K/uL (0.11-0.59); Monocytes % (auto) 8.5 %; Neutrophils # (auto) 4.91 K/uL (1.40-6.50); Neutrophils % (auto) 74.9 %; Platelet Count 185 K/uL (130-400); RDW Coefficient of Variation 12.2 % (11.5-14.5); RDW Standard Deviation 37.2 fL (36.4-46.3); Red Blood Count 4.78 M/uL (4.70-6.10); White Blood Count 6.55 K/ul (4.8-10.8)
--- NOTE | 2024-10-08 13:41 | XRay Report ---
XR chest 1V portable CLINICAL HISTORY: Chest pain, nonspecific COMPARISON STUDY: 01/11/2023 FINDINGS: Stable mild cardiomegaly without pulmonary vascular congestion. No effusion, consolidation, or pneumothorax. IMPRESSION: No acute findings. ACT 112: Negative or not required by law. Electronically signed by: Yuan Leonard M.D. 10/08/2024 1:40 PM
[2024-10-08 13:53] LABS: Albumin Globulin Ratio 1.3 (0.9-2); Albumin Level 3.8 gm/dl (3.4-5.0); BUN Creatinine Ratio 17.8 (10-20); Bilirubin,Total 0.3 mg/dl (0.2-1.0); Calcium 8.8 mg/dl (8.6-10.3); Creatinine Clr Calc Pharmacy 96.4 ml/min; Magnesium 1.9 mg/dl (1.7-2.4); Potassium 4.2 mmol/L (3.5-5.1); Total Protein 6.8 gm/dl (6.0-8.3)
[2024-10-08 13:55] LABS: Troponin I High Sensitivity 7.1 pg/ml (0-20)
[2024-10-08 14:04] LABS: INR 0.9 (0.9-1.1); Prothrombin Time 10.3 Seconds (9.0-12.0)
--- NOTE | 2024-10-08 15:19 | Ultrasound Report ---
RIGHT LOWER EXTREMITY VENOUS DOPPLER CLINICAL HISTORY: Right leg swelling. Evaluate for deep venous thrombus. COMPARISON STUDY: Right lower extremity venous Doppler ultrasound September 26, 2015. TECHNIQUE: Sonography of the deep venous system of the right lower extremity was performed. Compress ion and augmentation were evaluated. FINDINGS: Exam is compromised by suboptimal penetration. The right common femoral, superficial femor al and popliteal veins were compressible. Augmentation was normal. Flow was shown within the deep [place] f vessels. IMPRESSION: Technically compromised exam but no evidence of deep venous thrombus within the right low er extremity. ACT 112: Negative or not required by law. Electronically signed by: Zaid Johnston M.D. 10/08/2024 3:17 PM
[2024-10-08 15:36] LABS: Appearance Urine Clear (Clear); Bacteria Urine Automated None Seen (None Seen); Bilirubin Urine Negative (Negative); Blood Urine Trace (Negative); Cast Urine Automated 0-2 /lpf (0-2); Color Urine Yellow; Epithelial Cell Urine Auto 0-2 /hpf (0-2); Glucose Urine UA Negative (Negative); Ketones Urine Negative (Negative); Leukocyte Esterase Urine Negative (Negative); Nitrite Urine Negative (Negative); Protein Urine Negative (Negative); RBC Urine Automated 0-2 /hpf (0-2); Urobilinogen Urine Negative (Negative); WBC Urine Automated 0-5 /hpf (0-5); pH Urine 5.5 (4.5-7.5)
[2024-10-08 15:53] LABS: Troponin I High Sensitivity 6.9 pg/ml (0-20)
[2024-10-08 16:02] LABS: Thyroid Stimulating Hormone 3.525 uIu/ml (0.300-4.500)
--- NOTE | 2024-10-08 18:03 | History & Physical Report ---
Date of Service October 08, 2024 Assessment & Plan (1) Coronary artery disease: (2) Obesity, morbid, BMI 40.0-49.9: (3) Hypertension: Plan #Chest pain -ddx being angina vs stress related as main two -troponins negative x2. stress echo in AM -lipids/A1c in AM #NASH -if stress (+) then anginal. if (-) possible poor chronotropic response with meds vs deconditioning related to BMI 52.1 #elevated BP/HTN -running higher than usual - but highly doubt hypertensive chest pain- no troponin elevation makes this quite unlikely - most likely fits w stress of feeling worse #BMI 52.1 -discussed lifestyle change; did have barriers with different cancer treatments/etc but also seems that he would probably be able to have a good response to therapeutic lifestyle change #LE edema -almost certainly venous stasis -lifestyle change would likely help a good deal #DVT proph -ambulation (consider pharmacologic if hospital stay becomes surprisingly prolonged) History of Present Illness Chief Complaint: Chest pain Primary Care Provider: Tarah Daley MD patient is a very pleasant 63-year-old male who presents with chest pain that has been on again off again For the last several months. He describes it as a burningclarifies is much more of a burning but feels like his lungs "like if you were taking around on a cold day". Pain seems to come on sometimes spontaneously, sometimes with exertion, sometimes whenever he is frustrated. It tends to go away over about 10 minutes with rest, he also notes that it goes away with an aspirin, but whenever asked how long it takes, he realizes it takes about the same 10 minutes to go away with rest or Within aspirin. This has been going on for few months, over the last month or so, he has noted a new degree of dyspnea on exertion that is worse than before. reduced exercise tolerance over that time. 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 Allergies Allergy/AdvReac Type Severity Reaction Status Date / Time Bactrim Allergy Intermediate GI SYMPTOMS Verified 09/20/17 15:18 rosuvastatin Allergy Intermediate Hives Verified 10/08/24 17:50 sulfamethoxazole Allergy Intermediate GI SYMPTOMS Verified 10/08/24 17:50 trimethoprim Allergy Intermediate GI SYMPTOMS Verified 10/08/24 17:50 Home Medications Medication Instructions Recorded Confirmed Type aspirin 81 mg tablet,delayed 81 mg PO DAILY 12/30/22 08/02/24 History release ezetimibe 10 mg tablet 10 mg PO DAILY 12/30/22 08/02/24 History sertraline 25 mg tablet 25 mg PO DAILY 12/30/22 08/02/24 History terazosin 1 mg capsule 1 mg PO HS 12/30/22 08/02/24 History apixaban 5 mg tablet (Eliquis) 5 mg PO BID #60 tabs 01/02/23 08/02/24 Rx diltiazem HCl 180 mg 180 mg PO QAM #90 caps 01/25/24 08/02/24 Rx capsule,extended release 24 hr lisinopril 40 mg tablet 40 mg PO DAILY #90 tabs 01/25/24 08/02/24 Rx metoprolol succinate 100 mg 100 mg PO HS #90 tabs 01/25/24 08/02/24 Rx tablet,extended release 24 hr (Toprol XL) pravastatin 40 mg tablet 40 mg PO DAILY #90 tabs 01/25/24 08/02/24 Rx Past Med/Surg History Problem List Atrial flutter with rapid ventricular response Sleep apnea Left knee DJD Injury of medial collateral ligament of left knee Left knee pain History of partial nephrectomy 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 Left renal mass S/P prostatectomy Radical prostatectomy with bilateral lymph node dissection on 01/12/23 at [facility] by Dr Etienne Powell Prostate cancer (Chronic 11/17/21) Stented coronary artery Congestive heart failure with unknown left ventricular ejection fraction Coronary artery disease Hypertension (Chronic) Obesity, morbid, BMI 40.0-49.9 (Chronic) Nocturnal hypoxemia Acquired deviated nasal septum (Acute) Hypercholesteremia (Chronic) Medical History Depression Anxiety Chronic anticoagulation Moderate obstructive sleep apnea Hyperlipidemia Surgical History History of gastric bypass History of sinus surgery H/O heart artery stent (~2012) History of colonoscopy (~2014) History of carpal tunnel surgery (~2014) Bilateral S/P tonsillectomy H/O knee surgery (~2000) meniscus and ACL repair Right knee Family History Mother , 76yo Throat cancer Diabetes Hypertension Father , 58yo Myocardial infarction Alcoholic Sister Overdose Sister No problems noted. Sister No problems noted. Daughter No problems noted. Son No problems noted. Son No problems noted. 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 ext no c/c b/l LE edema c/w chronic venous stasis. neuro no focal deficits cn 2-12 grossly intact gross motor/sensory intact. mental status good recent and remote recall normal mood and affect Results & Data Results & Data Vital Signs (Past 12 Hours) Vital Signs Temp Pulse Pulse Resp BP BP Pulse Ox 10/08/24 17:23 49 L 10/08/24 17:00 52 L 18 182/95 H 97 10/08/24 15:00 50 L 18 154/92 H 94 10/08/24 14:45 48 L 18 164/76 H 94 10/08/24 14:03 53 L 19 167/89 H 95 10/08/24 13:11 10/08/24 13:02 57 L 10/08/24 12:59 57 L 17 95 10/08/24 12:51 97.7 F 60 17 174/92 H 95 O2 Del Method 10/08/24 17:23 10/08/24 17:00 Room Air 10/08/24 15:00 Room Air 10/08/24 14:45 10/08/24 14:03 10/08/24 13:11 Room Air 10/08/24 13:02 10/08/24 12:59 Room Air 10/08/24 12:51 Room Air PG Care Time/CCT Total # of Minutes Spent Total Time Spent with Patient: Total time spent is greater than 50% in coordination of care (as documented) at patient's floor/unit and/or counseling patient: Coding Level of Care Code 23729 INT INP/OBS CARE 375MIN Diagnoses Coronary artery disease I25.10 Obesity, morbid, BMI 40.0-49.9 E66.01 Hypertension I10
[2024-10-08] MEDS ORDERED: ONDANSETRON INJ 2 MG/ML 2 ML VIAL IV PRN (20:14)
[2024-10-08] MEDS ORDERED: POLYETHYLENE (MIRALAX) 17 GM PACK PO PRN (20:14)
[2024-10-08] MEDS ORDERED: MAGNESIUM HYDROXIDE SUSP 30 ML UDC PO PRN (20:14)
[2024-10-08] MEDS ORDERED: ACETAMINOPHEN 325 MG TAB PO PRN (20:14)
[2024-10-08] MEDS ORDERED: ALUMINUM/MAGNESIUM SUSP 30 ML UDC PO PRN (20:14)
[2024-10-08] MEDS ORDERED: MELATONIN 3 MG TAB PO PRN (20:14)
[2024-10-08] MEDS: APIXABAN 5 MG TABLET PO SCH (20:55)
[2024-10-08] MEDS: TERAZOSIN HCL 1 MG CAP PO SCH (20:55)
[2024-10-08] MEDS: METOPROLOL SUCC 50MG EXT REL TAB PO SCH (20:55)
--- NOTE | 2024-10-08 22:09 | Electrocardiogram Report ---
Test Reason : Blood Pressure : */* mmHG Vent. Rate : 56 BPM Atrial Rate : 56 BPM P-R Int : 156 ms QRS Dur : 96 ms QT Int : 412 ms P-R-T Axes : 51 15 15 degrees QTcB Int : 397 ms Sinus bradycardia Nonspecific ST abnormality Abnormal ECG When compared with ECG of 17-Jan-2023 09:11, ST now depressed in Inferior leads Confirmed by Preston Epps ([id number]) on 10/08/2024 10:08:46 PM Referred By: REFERRED SELF Confirmed By: Preston Epps
[2024-10-09 05:45] LABS: Chol HDL Ratio 3.6 (0-5)
--- NOTE | 2024-10-09 05:55 | Electrocardiogram Report ---
Test Reason : Blood Pressure : */* mmHG Vent. Rate : 51 BPM Atrial Rate : 51 BPM P-R Int : 160 ms QRS Dur : 94 ms QT Int : 460 ms P-R-T Axes : 52 19 -13 degrees QTcB Int : 423 ms Sinus bradycardia T wave abnormality, consider inferior ischemia Abnormal ECG When compared with ECG of 08-Oct-2024 12:59, No significant change was found Confirmed by Preston Epps ([id number]) on 10/09/2024 5:54:28 AM Referred By: REFERRED SELF Confirmed By: Preston Epps
[2024-10-09 07:41] LABS: Estimated Average Glucose 123 mg/dl; Hemoglobin A1C 5.9 % (4.5-5.6)
[2024-10-09] MEDS: ASPIRIN 81 MG ECTAB PO SCH (08:05)
[2024-10-09] MEDS: lisinopril 40 MG TAB PO SCH (08:05)
[2024-10-09] MEDS: EZETIMIBE 10 MG TAB PO SCH (08:06)
[2024-10-09] MEDS: dilTIAZem HCL 180 MG CAPCR PO SCH (08:06)
[2024-10-09] MEDS: PRAVASTATIN SOD 40 MG TAB PO SCH (08:07)
[2024-10-09] MEDS: SERTRALINE HCL 50 MG TABLET PO SCH (08:07)
--- NOTE | 2024-10-09 08:09 | Hospitalist Progress Note ---
Date of Service October 09, 2024 Assessment & Plan (1) Coronary artery disease: (2) Obesity, morbid, BMI 40.0-49.9: (3) Hypertension: Plan #Chest pain/NASH -ddx being angina vs stress related as main two -troponins negative x2 -lipids/A1c in AM - LDL above goal, A1c 5.9 -Stress echo + -Cardiac catheterization + multivessel disease, recommend transfer for CT Surgery evaluation, pt prefers [facility]. If approved, transportation across state lines will be difficult #elevated BP/HTN -running higher than usual - but highly doubt hypertensive chest pain- no troponin elevation makes this quite unlikely - most likely fits w stress of f eeling worse -added Imdur 20mg BID #BMI 52.1 -discussed lifestyle change; did have barriers with different cancer treatments/etc but also seems that he would probably be able to have a good response to therapeutic lifestyle change #LE edema -almost certainly venous stasis -lifestyle change would likely help a good deal #DVT proph -ambulation (consider pharmacologic if hospital stay becomes surprisingly prolonged) Admission and Anticipated Discharge Date Admission Date: October 08, 2024 Supervising Physician Co-Signing Physician Notes I personally examined the patient and verified all ornelas points of history and exam, discussed case, and agree with decision making with Dr Tubbs some angina at rest but went away quickly. d/w cardiology after cath - for CABG. d/w pt - since a lot of his prior tertiary care was at [facility] he preferred this. called/accepted but unfortunately transport (due to crossing state lines) is not able to be set up outside of private contracted services. after careful discussions pt/ opted for [facility]. called - accepted vitals noted nad heent nc at mmm breathing unlabored no accessory muscles good effort skin no rashes no pallor or icterus neuro no focal deficits severe multivessel CAD w unstable angina - for transfer for CABG; med management, secondary risk reduction, lifestyle change all discussed in depth/at length ~60mins face to face in the room over two separate visits today discussing CAD/CABG/lifestyle management/expectations and then second visit readdressing transfer options - this was separate from the time spent actually coordinating the transfer with the transfer center and discussing case w accepting physicians Subjective Patient seen and evaluated at bedside this morning. No acute events overnight. Pt describes recurrent feeling of burning lungs with exertion>at rest. Otherwise, no acute complaints. Plan for stress echo today. Review of Systems Review of Systems: reviewed, per HPI Physical Exam Physical Exam: Constitutional: well-appearing, no acute distress HEENT: NCAT, no conjunctival injection CV: +s1/s2, extremities well-perfused, + LE edema, venous stasis changes Resp: CTAB, no increased work of breathing GI: nondistended MSK: no gross deformities appreciated Skin: warm, dry, no rash appreciated Neuro: alert, oriented, no focal neurologic deficit appreciated Results & Data Results & Data Vital Signs (Past 12 Hours) Vital Signs Temp Pulse Pulse Resp BP Pulse Ox O2 Del Method 10/09/24 07:00 46 L 10/09/24 03:36 36.4 C L 59 L 16 152/80 H 94 Room Air 10/09/24 00:29 48 L 10/09/24 00:28 55 L 10/08/24 22:58 36.4 C L 54 L 18 146/79 H 96 Room Air 10/08/24 22:17 Room Air 10/08/24 20:14 36.3 C L 52 L 18 177/91 H 97 Room Air Resident Activity Tracking Resident Involvement: Resident Care Provided Care Provided: Adult Hospital Medicine
--- NOTE | 2024-10-09 10:50 | Cardiology Consultation ---
Date of Consultation October 09, 2024 Assessment & Plan (1) Abnormal stress echo: (2) Angina pectoris: (3) Coronary artery disease: (4) Stented coronary artery: (5) Hypercholesteremia: (6) Hypertension: (7) Paroxysmal atrial flutter: Plan ASSESSMENT/PLAN: 1. Angina: Based on his description, crescendo angina and now abnormal stress echo. Recommend coronary angiography. Risk and benefits of the procedure discussed with him in detail and he was made aware that CT surgery is not available at this facility. He was agreeable to proceed. Given that he is having rest symptoms intermittently, we will attempt to perform the procedure today. 2. CAD s/p PCI: Details of his PCI are not known at this time other than it was placed in 2011. Cardiac catheterization today. Continue antiplatelet therapy. He is well beta blocked. Has not tolerated high intensity statin therapy. 3. Dyslipidemia: LDL above goal. He has not tolerated high intensity statin therapy. He is tolerating pravastatin 40 mg. Recommend increasing pravastatin to 80 mg, if tolerated. Continue Zetia. If LDL not at goal following these changes, would consider PCSK9 inhibitor in place of Zetia. Mediterranean diet. Weight loss. 4. Hypertension: Blood pressure reasonably controlled this morning however hypertensive yesterday. Continue home regimen for now and make adjustments as necessary to optimize blood pressure control. He is well beta blocked. Would not further increase diltiazem given resting bradycardia. 5. Atrial flutter: Underwent cardioversion in the past. Continue anticoagulation for stroke risk reduction. Sinus rhythm here. On rate controlling medications as per his primary milking machine operator. 6. Edema: Improved overnight. Likely due to venous insufficiency. Difficult exam in regards to volume status. 7. Sleep apnea: Does not use CPAP. Recommend that he follow-up with his sleep medicine provider to determine appropriate treatment. 8. Disposition: Cardiology will continue to follow. Patient care discussed with Dr. Willis of the primary hospitalist service. Highly complex medical issues. Addendum: Coronary angiography demonstrated severe multivessel CAD involving the left main, circumflex, and LAD. Findings discussed with his initially via telephone. Visited patient with his at the bedside again this afternoon. He has requested transfer to [facility] as he is followed there for other issues. Appreciate primary hospitalist service in attempting to arrange transfer. Given hypertension, will replace metoprolol succinate with carvedilol 12.5 mg twice daily this evening. Given moderately elevated LVEDP, we will arrange for low-dose Lasix now as well. This should also improve his blood pressure. Cardiology will continue to follow while hospitalized here. [employer] has been asked to forward images (cath and echo) to [facility]. Total time today, excluding procedures, is 80 minutes, which includes [id number] time, counseling patient, coordinating care, discussing plan of care with patient/family, communicating with primary hospitalist service, reviewing records, completing documentation. Thank you for allowing me to participate in the care of your patient. Please call for any other questions or concerns. Sincerely, Surendra Epps M.D. History of Present Illness Reason for Consultation: Abnormal stress Requesting Physician: Corky Willis DO Attending Physician: Corky Willis DO History of Present Illness Mr. Murphy is a pleasant 63-year-old gentleman with history significant for CAD s/p PCI ([facility] 2011), hypertension, dyslipidemia, atrial flutter s/p DC CV. His primary milking machine operator is Dr. Mosquera. He was admitted on 10/08/2024 with chest pain and shortness of breath. He states that for the past 2 months, he has had substernal chest burning that has increased in frequency and now occurring daily. At first it was with exertion, especially stairs. It was accompanied with shortness of breath but no radiation of the pain. There was occasional diaphoresis. Symptoms have progressed to the point that they are occurring daily and even at rest. He had an episode this morning at rest while watching the news. In the ED, he was noted to have ST depressions in the inferolateral leads. High-sensitivity troponin was negative x 2. He admits that the chest discomfort typically last 5 minutes before spontaneously resolving. He would sometimes take aspirin at home. Exercise stress echo was performed this morning. He had poor exercise tolerance, completing 3 minutes on Noel protocol. During exercise, his exercise ECG was not definitively positive but in recovery, he developed substernal chest burning, same as his presenting symptoms. He developed diagnostic ST changes. Stress echo images demonstrated apical wall motion abnormality. There was poor image quality and parasternal long images were uninterpretable following stress. He did not achieve target heart rate. He has chronic lower extremity edema which typically resolves overnight. It has been stable. He denies syncope, near syncope, palpitations, melena, hematochezia, hematuria, or other bleeding. He was intolerant to atorvastatin and rosuvastatin due to myalgias but is rafael ating pravastatin well. Review of systems: As above. Family history: Father at 58 from [place]. Social history: He denies smoking or drug abuse. Rare alcohol. He lives at home with his and adult son. He has 3 children. Grandchildren. 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 He was unaccompanied at the time of this consult. Allergies Allergy/AdvReac Type Severity Reaction Status Date / Time Bactrim Allergy Intermediate GI SYMPTOMS Verified 09/20/17 15:18 rosuvastatin Allergy Intermediate Hives Verified 10/08/24 17:50 sulfamethoxazole Allergy Intermediate GI SYMPTOMS Verified 10/08/24 17:50 trimethoprim Allergy Intermediate GI SYMPTOMS Verified 10/08/24 17:50 Home Medications Medication Instructions Recorded Confirmed Type aspirin 81 mg tablet,delayed 81 mg PO DAILY 12/30/22 10/08/24 History release ezetimibe 10 mg tablet 10 mg PO QAM 12/30/22 10/08/24 History sertraline 25 mg tablet 25 mg PO QAM 12/30/22 10/08/24 History terazosin 1 mg capsule 1 mg PO HS 12/30/22 10/08/24 History apixaban 5 mg tablet (Eliquis) 5 mg PO BID #60 tabs 01/02/23 10/08/24 Rx diltiazem HCl 180 mg 180 mg PO QAM #90 caps 01/25/24 10/08/24 Rx capsule,extended release 24 hr metoprolol succinate 100 mg 100 mg PO HS #90 tabs 01/25/24 10/08/24 Rx tablet,extended release 24 hr (Toprol XL) lisinopril 40 mg tablet 20 mg PO QAM 10/08/24 10/08/24 History pravastatin 20 mg tablet 20 mg PO HS 10/08/24 10/08/24 History Problem List (Updated 10/09/24 @ 11:43 by Renzo Grijalva MD) Fatigue (Acute) NASH (dyspnea on exertion) (Acute) Chest pain (Acute) Paroxysmal atrial flutter Angina pectoris Abnormal stress echo Atrial flutter with rapid ventricular response Sleep apnea Left knee DJD Injury of medial collateral ligament of left knee Left knee pain History of partial nephrectomy 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 Left renal mass S/P prostatectomy Radical prostatectomy with bilateral lymph node dissection on 01/12/[address] [facility] by Dr Etienne Powell Prostate cancer (Chronic 11/17/21) Stented coronary artery Congestive heart failure with unknown left ventricular ejection fraction Coronary artery disease (Acute) Hypertension (Chronic) Obesity, morbid, BMI 40.0-49.9 (Chronic) Nocturnal hypoxemia Acquired deviated nasal septum (Acute) Hypercholesteremia (Chronic) Patient History Medical History Depression Anxiety Chronic anticoagulation Moderate obstructive sleep apnea Hyperlipidemia Surgical History History of gastric bypass History of sinus surgery H/O heart artery stent (~2012) History of colonoscopy (~2014) History of carpal tunnel surgery (~2014) Bilateral S/P tonsillectomy H/O knee surgery (~2000) meniscus and ACL repair Right knee Family History Mother , 76yo Throat cancer Diabetes Hypertension Father , 58yo Myocardial infarction Alcoholic Sister Overdose Sister No problems noted. Sister No problems noted. Daughter No problems noted. Son No problems noted. Son No problems noted. 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 Alert and oriented. HEENT: Anicteric sclera. Neck: Thick neck. No bruits. Normal carotid upstrokes bilaterally. Cardiac: Regular. Normal S1-S2. No murmurs, rubs, or gallops. Pulmonary: Clear to auscultation bilaterally without wheezes, rales, or rhonchi. Abdomen: Soft, nontender, nondistended, with normoactive bowel sounds. No bruits noted. Extremities: 2+ radial pulses bilaterally. 2+ posterior tibialis pulses bilaterally. Trace to 1+ bilateral lower extremity edema. No cyanosis. Psychiatric: Affect appears appropriate. Results & Data Vital Signs (Past 12 Hours) Vital Signs Temp Pulse Pulse Resp BP Pulse Ox O2 Del Method 10/09/24 08:18 36.8 C 47 L 18 121/71 96 Room Air 10/09/24 07:00 46 L 10/09/24 03:36 36.4 C L 59 L 16 152/80 H 94 Room Air 10/09/24 00:29 48 L 10/09/24 00:28 55 L 10/08/24 22:58 36.4 C L 54 L 18 146/79 H 96 Room Air Laboratory Results Laboratory Results - last 24 hr 10/08/24 10/08/24 10/09/24 13:10 15:16 04:48 WBC 6.55 RBC 4.78 Hgb 14.2 Hct 40.4 L MCV 84.5 MCH 29.7 MCHC 35.1 RDW Std Deviation 37.2 RDW Coeff of Jerod 12.2 Plt Count 185 MPV 10.2 Immature Gran % (Auto) 0.2 Neut % (Auto) 74.9 Lymph % (Auto) 12.7 Cameron % (Auto) 8.5 Eos % (Auto) 2.9 Baso % (Auto) 0.8 Neut # (Auto) 4.91 Lymph # (Auto) 0.83 L Cameron # (Auto) 0.56 Eos # (Auto) 0.19 Baso # (Auto) 0.05 Immature Gran # (Auto) 0.01 PT 10.3 INR 0.9 Sodium 142 Potassium 4.2 Chloride 108 H Carbon Dioxide 26 Anion Gap 8 BUN 21 Creatinine 1.18 Est Cr Clr Drug Dosing 96.4 eGFR 69.34 BUN/Creatinine Ratio 17.8 Glucose 82 Estimat Average Glucose 123 Hemoglobin A1c 5.9 H Calcium 8.8 Magnesium 1.9 Total Bilirubin 0.3 AST 16 ALT 24 Alkaline Phosphatase 91 Troponin I High Sens 7.1 6.9 Total Protein 6.8 Albumin 3.8 Globulin 3.0 Albumin/Globulin Ratio 1.3 Triglycerides 82 Cholesterol 135 LDL Cholesterol, Calc 82 VLDL Cholesterol, Calc 16 HDL Cholesterol 37 Cholesterol/HDL Ratio 3.6 Lipase 62 TSH 3.525 Urine Color Yellow Urine Appearance Clear Urine pH 5.5 Ur Specific [place] 1.020 Urine Protein Negative Urine Glucose (UA) Negative Urine Ketones Negative Urine Blood Trace H Urine Nitrite Negative Urine Bilirubin Negative Urine Urobilinogen Negative Ur Leukocyte Esterase Negative Urine WBC (Auto) 0-5 Urine RBC (Auto) 0-2 U Hyaline Cast (Auto) 0-2 U Epithel Cells (Auto) 0-2 Urine Bacteria (Auto) None Seen Urine Comment Lyme Disease Screen Negative Diagnostic Findings Labs reviewed and notable for stable renal function, normal potassium, normal high-sensitivity troponin, LDL above goal, normal hemoglobin, normal platelet count, normal TSH. ECG personally reviewed as noted above in HPI. ECG personally reviewed 1649: Sinus bradycardia [address]/T wave abnormality. Stress echo images personally reviewed as summarized above. Formal review to follow. History and physical report reviewed. Outpatient cardiology note reviewed. Chest x-ray 10/08/2024: No acute findings per radiology. Chest x-ray image personally reviewed: No infiltrate. Venous Doppler study 10/08/2024: No DVT within the right lower extremity per radiology. Medications Administered Current Inpatient Medications Acetaminophen (Acetaminophen 325 Mg Tab) 650 mg PO Q4H PRN PRN Reason: Pain Stop: 11/07/24 20:13 Al Hydrox/Mg Hydrox/Simethicone (Aluminum/Magnesium Susp 30 Ml Udc) 15 ml PO Q4H PRN PRN Reason: Dyspepsia Stop: 11/07/24 20:13 Apixaban (Apixaban 5 Mg Tablet) 5 mg PO BID JAQUI Stop: 11/07/24 20:59 Last Admin: 10/09/24 08:05 Dose: 5 mg Aspirin (Aspirin 81 Mg Ectab) 81 mg PO DAILY JAQUI Stop: 11/08/24 08:59 Last Admin: 10/09/24 08:05 Dose: 81 mg Diltiazem HCl (Diltiazem Hcl 180 Mg Capcr) 180 mg PO QAM JAQUI Stop: 11/08/24 08:59 Last Admin: 10/09/24 08:06 Dose: Not Given Ezetimibe (Ezetimibe 10 Mg Tab) 10 mg PO DAILY JAQUI Stop: 11/08/24 08:59 Last Admin: 10/09/24 08:06 Dose: 10 mg Lisinopril (Lisinopril 40 Mg Tab) 40 mg PO DAILY JAQUI Stop: 11/08/24 08:59 Last Admin: 10/09/24 08:05 Dose: 40 mg Magnesium Hydroxide (Magnesium Hydroxide Susp 30 Ml Udc) 30 ml PO Q12H PRN PRN Reason: Constipation Stop: 11/07/24 20:13 Melatonin (Melatonin 3 Mg Tab) 3 mg PO HS PRN PRN Reason: Sleep Stop: 11/07/24 20:13 Metoprolol Succinate (Metoprolol Succ 50mg Ext Rel Tab) 100 mg PO HS JAQUI Stop: 11/07/24 20:59 Last Admin: 10/08/24 20:55 Dose: 100 mg Ondansetron HCl (Ondansetron Inj 2 Mg/Ml 2 Ml Vial) 4 mg IV Q6H PRN PRN Reason: Nausea Stop: 11/07/24 20:13 Polyethylene Glycol (Polyethylene (Miralax) 17 Gm Pack) 17 gm PO DAILY PRN PRN Reason: Constipation Stop: 11/07/24 20:13 Pravastatin Sodium (Pravastatin Sod 40 Mg Tab) 40 mg PO DAILY JAQUI Stop: 11/08/24 08:59 Last Admin: 10/09/24 08:07 Dose: 40 mg Sertraline HCl (Sertraline Hcl 50 Mg Tablet) 25 mg PO DAILY JAQUI Stop: 11/08/24 08:59 Last Admin: 10/09/24 08:07 Dose: 25 mg Terazosin HCl (Terazosin Hcl 1 Mg Cap) 1 mg PO HS JAQUI Stop: 11/07/24 20:59 Last Admin: 10/08/24 20:55 Dose: 1 mg PG Care Time/CCT Total # of Minutes Spent Total Time Spent with Patient: Total time spent is greater than 50% in coordination of care (as documented) at patient's floor/unit and/or counseling patient: Coding Level of Care Code 90191 INT INP/OBS CARE 3/75MIN Diagnoses Abnormal stress echo R94.39 Angina pectoris I20.9 Coronary artery disease I25.10 Stented coronary artery Z95.5 Hypercholesteremia E78.00 Hypertension I10 Paroxysmal atrial flutter I48.92 Time Spent (min) 80
--- NOTE | 2024-10-09 12:30 | Pre Anesthesia Assessment ---
Date of Service October 09, 2024 Pre Sedation Assessment Vital Signs Temp Pulse Pulse Resp BP BP Pulse Ox 10/09/24 11:21 48 L 16 168/79 H 95 10/09/24 08:18 36.8 C 47 L 18 121/71 96 10/09/24 07:00 46 L 10/09/24 03:36 36.4 C L 59 L 16 152/80 H 94 10/09/24 00:29 48 L 10/09/24 00:28 55 L 10/08/24 22:58 36.4 C L 54 L 18 146/79 H 96 10/08/24 22:17 10/08/24 20:14 36.3 C L 52 L 18 177/91 H 97 10/08/24 19:00 52 L 14 153/81 H 96 10/08/24 18:00 48 L 18 192/98 H 96 10/08/24 17:23 49 L 10/08/24 17:00 52 L 18 182/95 H 97 10/08/24 15:00 50 L 18 154/92 H 94 10/08/24 14:45 48 L 18 164/76 H 94 10/08/24 14:03 53 L 19 167/89 H 95 10/08/24 13:11 10/08/24 13:02 57 L 10/08/24 12:59 57 L 17 95 10/08/24 12:51 36.5 C 60 17 174/92 H 95 O2 Del Method 10/09/24 11:21 Room Air 10/09/24 08:18 Room Air 10/09/24 07:00 10/09/24 03:36 Room Air 10/09/24 00:29 10/09/24 00:28 10/08/24 22:58 Room Air 10/08/24 22:17 Room Air 10/08/24 20:14 Room Air 10/08/24 19:00 Room Air 10/08/24 18:00 Room Air 10/08/24 17:23 10/08/24 17:00 Room Air 10/08/24 15:00 Room Air 10/08/24 14:45 10/08/24 14:03 10/08/24 13:11 Room Air 10/08/24 13:02 10/08/24 12:59 Room Air 10/08/24 12:51 Room Air Cardiovascular + bradycardic Respiratory normal respiratory effort, lungs clear to auscultation Pre-Sedation Airway Assessment Smoking Status: Never smoker Mallampati Class: III ASA: ASA3 NPO Status Date of Last Intake of Fluids: 10/09/24 Time of Last Intake of Fluids: 09:00 Date of Last Intake of Solid Food: 10/08/24 Time of Last Intake of Solid Foods: 21:00 Procedure Planning Contraindications for Sedation: none Current Medications Reviewed: Yes Notes The planned sedation has been discussed with the patient. Informed Consent was obtained. I have identified the patient, determined the appropriateness of sedation and have assessed the patient immediately prior to the procedure. All medicine(s) and interventions are by my order.
[2024-10-09] MEDS: MIDAZOLAM HCL 1 MG/ML 2ML VIAL ONE (13:36)
[2024-10-09] MEDS: HEPARIN (PORCINE) 1000 UNIT/ML 10 ML (CATH LAB USE ONLY) ONE (13:36)
[2024-10-09] MEDS: fentaNYL citrate PF 100 MCG/2 ML VIAL ONE (13:37)
[2024-10-09] MEDS: OPTIRAY 350 ONE (13:37)
[2024-10-09] MEDS: NITROGLYCERIN/D5W 100MCG/ML 20ML SYR ONE (13:38)
[2024-10-09] MEDS: niCARdipine 2,000 MCG/20 ML SYR ONE ×2 (13:38)
[2024-10-09] MEDS: hydrALAZINE HCL 20 MG/ML VIAL ONE (13:38)
--- NOTE | 2024-10-09 13:39 | Post Anesthesia Assessment ---
Date of Service October 09, 2024 Post Sedation Assessment Vital Signs Temp Pulse Pulse Resp BP BP Pulse Ox 10/09/24 11:21 48 L 16 168/79 H 95 10/09/24 08:18 36.8 C 47 L 18 121/71 96 10/09/24 07:00 46 L 10/09/24 03:36 36.4 C L 59 L 16 152/80 H 94 10/09/24 00:29 48 L 10/09/24 00:28 55 L 10/08/24 22:58 36.4 C L 54 L 18 146/79 H 96 10/08/24 22:17 10/08/24 20:14 36.3 C L 52 L 18 177/91 H 97 10/08/24 19:00 52 L 14 153/81 H 96 10/08/24 18:00 48 L 18 192/98 H 96 10/08/24 17:23 49 L 10/08/24 17:00 52 L 18 182/95 H 97 10/08/24 15:00 50 L 18 154/92 H 94 10/08/24 14:45 48 L 18 164/76 H 94 10/08/24 14:03 53 L 19 167/89 H 95 O2 Del Method 10/09/24 11:21 Room Air 10/09/24 08:18 Room Air 10/09/24 07:00 10/09/24 03:36 Room Air 10/09/24 00:29 10/09/24 00:28 10/08/24 22:58 Room Air 10/08/24 22:17 Room Air 10/08/24 20:14 Room Air 10/08/24 19:00 Room Air 10/08/24 18:00 Room Air 10/08/24 17:23 10/08/24 17:00 Room Air 10/08/24 15:00 Room Air 10/08/24 14:45 10/08/24 14:03 Recovery Score Activity: Moves 4 extremities Respiration: Deep Breath/Cough Circulation: +/-20% PreAnes Value Consciousness: Fully Awake Oxygen Saturation: > 92% On Room Air Discharge Sedation Level of Care: Fast Track Phase II Post Sedation Plan On clinical assessment, the patient appears to have tolerated the sedation without complications. Patient is recovering as anticipated. Patient will continue to be monitored by nursing and may be discharged when sedation discharge criteria are met per below protocol. Upon Completions of procedure up to 15 minutes continue every 5 minute vital signs and the P.A.R. score; then discharge to a Phase I or Fast Track to Phase II per the following guidelines: * Discharge Patient to appropriate Phase II area if PAR is 8 or greater or return to pre- procedure baseline. The post - procedure orders will be as directed. * If PAR score is less than 8 or not return to pre-procedure baseline then patient will follow Phase I monitoring till PAR is reached for Phase II. The Phase I may be done in procedure room or may call to secure a Phase I area. * If naloxone or flumazenil are used for reversal, hold in Phase I for continued monitoring from when last reversal dose was given for a minimum of 60 minutes or longer pending the nurse and/or physician discretion of patient condition before discharge to Phase II. Please call the Sedation Physician to re-evaluate and complete post-note for discharge to Phase II area. Do NOT discharge from procedure sedation or Phase 1 until post- sedation evaluation note is complete by procedure /sedation MD Sedation Discharge Instructions to be given to the patient at discharge to home.
--- NOTE | 2024-10-09 13:49 | Cardiac Catheterization ---
[facility] Data: Assessment Director Cardiac Status Clinical evaluation leading to the procedure CAD Presenation: Unstable angina Anginal Classification: CCS IV Heart Failure: No Cardiogenic Shock within 24 Hours: No Cardiac Arrest within 24 Hours: No Imaging Studies Past 6 Months: Yes Stress Studies Past 6 Months: Yes Standard Exercise Test: Yes - Positive and Risk/Extent of Ischemia (Intermediate) Stress Echocardiogram: Yes - Positive and Risk/Extent of Ischemia (Intermediate) Coronary Anatomy Dominant: Right Diagnostic Physicians Name: Preston Epps MD Status: Elective Closure Device Percutaneous Entry Location: Radial Closure Device: Radial Band Recommendations: CABG Cardiac Cath Procedure Full Procedure Date October 09, 2024 Pre-Procedure Diagnosis Pre-Procedure Diagnosis: Angina and Positive Stress Test AUC Score AUC Score: 8 Post-Procedure Diagnosis Post-Procedure Diagnosis: Severe CAD and Elevated Intracardiac Pressures Procedure(s) Performed Procedure(s) Performed: Coronary Angiography and Left Heart Cath Frequency Checker Preston Epps MD Mat Tester(s) Kaitlynn Manager Installation Estimated Blood Loss Estimated Blood Loss: < 20 ml Medication(s) Medication(s): Fentanyl, Hydralazine, Lidocaine 1%, Nicardipine and Versed Summary of Findings Procedures: 1. Coronary angiography 2. Left heart catheterization 3. Moderate sedation Indication: Mr. Murphy is a pleasant 63-year-old gentleman with prior RCA PCI, sleep apnea, hypertension, dyslipidemia, and prediabetes who presented with crescendo angina and abnormal stress test. Coronary angiography: 1. Left main: Distal left main 80%. AIDA-3 flow. 2. Left anterior descending: Calcifications noted throughout the proximal and mid LAD. Proximal LAD 30%. Mid LAD 40%. Late mid LAD 70% followed by focal dilation and 50% stenosis, at bifurcation of medium diagonal vessel. AIDA-3 flow. 3. Circumflex: Ostial circumflex 98%. Mid circumflex 70-80%. Distal circumflex 70%. Large-caliber vessel. Small OM. AIDA-3 flow throughout. 4. Right coronary artery: RCA is large and dominant. Proximal RCA diffuse 40- 50%. Mid RCA stent is patent. PDA and PL without significant CAD. Left heart catheterization: 1. Left ventriculography was not performed. 2. LVEDP 22 mmHg. 3. No significant aortic stenosis. Moderate sedation: 1. Sedation start time: 1:17 PM 2. Sedation end time: 1:37 PM Impression: 1. Severe multivessel CAD involving left main, ostial circumflex, and LAD. 2. Patent mid RCA stent. 3. Otherwise nonobstructive CAD. 4. Moderately elevated LVEDP. Plan: 1. Recommend evaluation by CT surgery capable center to consider CABG. 2. Risk factor modification. Hemodynamics Rest Ao:: 179/79 Final Ao: 157/72 LV: 183/11/22 Recommendations Recommendations: CABG Specimens Specimens: None Radiation Exposure (mGy) 1212 mGy. Fluoro time 4 min. Contrast (mls) 55 ml Procedural Complication(s) None Disposition PCU I attest to the content of the Intraoperative Record and any orders documented therein. Any exceptions are noted below. [facility] Card Cath Procedure Codes Cardiac Catheterization Procedure 1: Cardiovascular Cath Procedures: 84993 Coronaries and LHC (+/-LV) Moderate Sedation Procedure 1: Sedation/Anesthesia: 47140 Mod Sedation by the same physician;Init15 Min Child Age 5 & Up Procedure 2: Sedation/Anesthesia: 87644 Mod Sedation by the same physician; Ea [id number] Minutes PG Care Time/CCT Total # of Minutes Spent Total Time Spent with Patient: Total time spent is greater than 50% in coordination of care (as documented) at patient's floor/unit and/or counseling patient:
[2024-10-09] MEDS ORDERED: hydrALAZINE HCL 20 MG/ML VIAL IV PRN (15:17)
[2024-10-09] MEDS: hydrALAZINE HCL 20 MG/ML VIAL IV ONE (15:17)
[2024-10-09] MEDS: NITROGLYCERIN SL 0.4 MG/TAB TAB ONE (15:38)
[2024-10-09] MEDS: carvediloL 12.5 MG TAB PO SCH (17:54)
[2024-10-09] MEDS: FUROSEMIDE INJ 20 MG/2 ML VIAL IV ONE (17:59)
[2024-10-09] MEDS: Heparin IV Adult Wt-Based Standard *NO* INITIAL Bolus Protocol IV STA (18:00)
--- NOTE | 2024-10-09 18:17 | XCELERA ---
[id number]
--- NOTE | 2024-10-09 18:22 | Billing Data ---
Date of Service October 09, 2024 Coding Level of Care Code PROLONG IP/OBS E/M EA 15 MIN
--- NOTE | 2024-10-09 18:22 | Billing Data ---
Date of Service October 09, 2024 Coding Level of Care Code 15523 SUB INP/OBS CARE MIN
[2024-10-09] MEDS ORDERED: HEPARIN SOD (PORCINE) 1000 UNIT/ML IV ONE (20:26)
[2024-10-09] MEDS: ISOSORBIDE MONONITRATE 20 MG TAB PO SCH (20:31)
[2024-10-09] MEDS: HEPARIN 25000 UNIT/500 ML D5W 25,000 UNITS/500 ML BAG IV SCH (21:50)
[2024-10-09 22:28] VITALS: RESP 20; TEMP 97.9; O2SAT 94
[2024-10-10 03:20] VITALS: BP 168/79; PULSE 100
--- NOTE | 2024-10-10 09:18 | Discharge Summary ---
Date of Service October 10, 2024 Admission HPI Per Admitting Provider patient is a very pleasant 63-year-old male who presents with chest pain that has been on again off again For the last several months. He describes it as a burningclarifies is much more of a burning but feels like his lungs "like if you were taking around on a cold day". Pain seems to come on sometimes spontaneously, sometimes with exertion, sometimes whenever he is frustrated. It tends to go away over about 10 minutes with rest, he also notes that it goes away with an aspirin, but whenever asked how long it takes, he realizes it takes about the same 10 minutes to go away with rest or Within aspirin. This has been going on for few months, over the last month or so, he has noted a new degree of dyspnea on exertion that is worse than before. reduced exercise tolerance over that time. 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 Principal Diagnosis multi-vessel CAD Discharge Exam Patient not seen date of discharge. Discharge Data Allergies Allergy/AdvReac Type Severity Reaction Status Date / Time Bactrim Allergy Intermediate GI SYMPTOMS Verified 09/20/17 15:18 rosuvastatin Allergy Intermediate Hives Verified 10/08/24 17:50 sulfamethoxazole Allergy Intermediate GI SYMPTOMS Verified 10/08/24 17:50 trimethoprim Allergy Intermediate GI SYMPTOMS Verified 10/08/24 17:50 Consultations 10/08/24 16:58 ED Decision to Admit Stat 10/09/24 10:14 Consult Cardiology Routine 10/09/24 18:31 Burn CD for patient Stat Procedures Performed Operation Date: 10/09/24 12:00 Actual Procedures p Cath, Left with Cors and Vent - Preston Epps MD s Cineradiography w/Routine Exam - Preston Epps MD Ordered Studies 10/08/24 13:46 US venous doppler LE RT Stat 10/09/24 13:03 CL Cath Imgs for PACS use only Routine Hospital Course (1) Coronary artery disease: (2) Obesity, morbid, BMI 40.0-49.9: (3) Hypertension: Plan Patient discharged via hospital-hospital transfer early this am. Transported by [facility] to [facility]. Patient was not seen on this date 10/10/24. #Chest pain/NASH -ddx being angina vs stress related as main two -troponins negative x2 -lipids/A1c in AM - LDL above goal, A1c 5.9 -Stress echo + -Cardiac catheterization + multivessel disease, recommend transfer for CT Surgery evaluation, pt prefers [facility]. If approved, transportation [place] state lines [place] difficult #elevated BP/HTN -running higher than usual - but highly doubt hypertensive chest pain- no troponin elevation makes this quite unlikely - most likely fits w stress of feeling worse -added Imdur 20mg BID #BMI 52.1 -discussed lifestyle change; did have barriers with different cancer treatments/etc but also seems that he would probably be able to have a good response to therapeutic lifestyle change #LE edema -almost certainly venous stasis -lifestyle change would likely help a good deal #DVT proph -ambulation (consider pharmacologic if hospital stay becomes surprisingly prolonged) Total Time Total Time Spent Total Time Spent (In Minutes): see attending documentation Discharge Plan Discharge Items Patient Disposition: Transfer Acute Care Hospital Reason For Visit: CHEST PAIN Discharge Diagnosis: Multi Vessel Coronary Artery Disease Condition on Discharge: Good Activity: Resume your previous activity Activity Comment: as tolerated Non-emergency contact: Primary Care Provider and Process Engineering Technician Call non-emergency contact if: you have any medication questions and your symptoms worsen Follow-up/Referrals: Tarah Daley MD [Primary Care Provider] - Diet: Heart Healthy Addfrancheska Attending Provider Instructions: You were admitted for chest pain. You had an abnormal stress echo and underwent cardiac catheterization which showed multi-vessel CAD. You will be transferred to [facility] when a bed and transportation is available for further evaluation and consideration for coronary artery bypass graft surgery. We made some changes to your medications. A list will be provided, please review these. 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 * No lifting over 2 pounds (approximately a 1/2 gallon of milk) with the utilized arm for 24 hours. * No strenuous activity such as bowling or tennis for 3 days. * Keep the site of the procedure covered with a bandage for 24 hours. *You may shower the day after the procedure. Do not take a tub bath or submerge the puncture site in water for the next 3 days. *Do not operate any motorized equipment for 3 days. SPECIAL CARE INSTRUCTIONS: The site may be slightly bruised and sore following your procedure. Should any of the following occur, contact the Dr. who performed your procedure. 1. Redness/inflammation, swelling, chills, or fever, or colored drainage at procedure site within 3-7 days after your procedure. 2. Coldness, discoloration, ongoing numbness, severe pain, or swelling. Expect mild tingling of hand and tenderness at the puncture site for up to three days. If this persists beyond three days, or other symptoms develop, notify the Dr. who performed your procedure. BLEEDING: If the procedure site on your wrist begins to bleed, do not panic 1. Place 1 or 2 fingers firmly just slightly above the insertion site to stop the bleeding. You may be able to feel your pulse as you hold pressure. 2. Lift your finger after 5 minutes to see if the bleeding has stopped. 3. Once the bleeding has stopped, gently wipe the wrist area clean with a bandage. * If the bleeding from your wrist does not stop after 10 minutes, or if there is a large amount of bleeding or spurting, call 911 (do not drive yourself to the hospital). SKIN IRRITATION: * You may experience some redness and/or swelling in the area where radiation was administered. If any skin irritation occurs, please contact your family physician. FOLLOW UP VISIT: Keep any scheduled doctor appointments. Pending Studies at Discharge: No Stand-Alone Forms: [facility] Skilled Items Patient informed of condition?: Yes DNR: No Discharge Level of Care: Other Communicable Disease: No Discharge Prognosis: Stable Lines: None Urinary Catheter: No Medications and DC Order Prescriptions: New pravastatin 40 mg Tablet 40 mg PO DAILY Qty: 30 0RF isosorbide mononitrate 20 mg Tablet 20 mg PO BID Qty: 30 0RF Continued diltiazem HCl 180 mg capsule,extended release 24hr 180 mg PO QAM Qty: 90 3RF metoprolol succinate [Toprol XL] 100 mg tablet extended release 24 hr 100 mg PO HS Qty: 90 3RF terazosin 1 mg capsule 1 mg PO HS sertraline 25 mg tablet 25 mg PO QAM ezetimibe 10 mg tablet 10 mg PO QAM aspirin 81 mg Tablet,Delayed Release (Dr/Ec) 81 mg PO DAILY lisinopril 40 mg tablet 20 mg PO QAM Held Eliquis 5 mg Tablet 5 mg PO BID Qty: 60 0RF Hold Instructions: Resume on 10/16/24. Resume when it is felt safe by your surgeon Discontinued pravastatin 20 mg tablet 20 mg PO HS Discharge Orders: Discharge Order (Routine); Ordered 10/10/24 Ordered By: Mc Tubbs Admission Data Admit Date/Time: 10/08/24 17:53 Attending Provider: Corky Willis Admit Provider: Corky Willis Primary Care Provider: Tarah Daley Other Providers: Corky Willis; Preston Epps Other Interventions: Discharge Summary Assessment (RN) Last Done: 10/10/24 01:30 Supervising Physician Co-Signing Physician Notes case d/w Dr Tubbs - pt had been seen extensively by him/myself on 10/09, transfer arranged. bed/transport set up and pt left current facility around 1:30am - not seen by us current date, but d/c summary as above severe multivessel CAD with resting angina - for tertiary CT surgery eval; after anticipated CABG, then med management, and therapeutic lifestyle change otherwise as above Resident Activity Tracking Resident Involvement: Resident Care Provided Care Provided: Adult Hospital Medicine
== END 2024-10-10 01:30 | disposition short-term general hospital (02) ==
LOC: ED 12:47 → 4W 12:47